=== PATIENT | male | born 1955 | race Caucasian/White ===

== ENCOUNTER 2018-03-07 10:17 | Emergency (ER) | payer SELFPAY ==
[2018-03-07 11:49] LABS: Absolute Lymphocytes (CBC) 1.4 K/uL (0.7-4.9); Absolute Monocytes 0.9 K/uL (0.1-1.3); Absolute Neutrophil 9.8 K/uL (1.8-8.0); Basophils % 0.6 % (0-1.3); Hematocrit 49.4 % (39.6-49.0); Lymphocytes % 11.5 % (15.3-44.8); MCH 30.8 pg (27.0-35.0); MCV 91.8 fL (80-100); MPV 8.7 fL (7.6-11.3); RBC Red Blood Cell Count 5.38 M/uL (4.33-5.43)
--- NOTE | 2018-03-07 11:54 | RAD REPORT ---
EXAM DESCRIPTION: US - UPPER EXTREMITY VENOUS UNILATE - 03/07/2018 11:26 am CLINICAL HISTORY: SWELLING Arm swelling and edema. COMPARISON: No comparisons FINDINGS: Right upper extremity venous system was interrogated with Doppler technique. Normal flow, compressibility and augmentation was noted. There is no DVT present. IMPRESSION: No evidence of right upper extremity deep venous thrombosis.
[2018-03-07 12:13] LABS: ALT/SGPT 23 U/L (12-78); AST/SGOT 15 U/L (15-37); Alkaline Phosphatase 68 U/L (45-117); BUN Blood Urea Nitrogen 10 mg/dL (7-18); Bicarbonate 31 mmol/L (21-32); Glucose Level 90 mg/dL (74-106); Potassium 3.8 mmol/L (3.5-5.1); Sodium Level 140 mmol/L (136-145)
[2018-03-07] MEDS ORDERED: BUPIVACAINE 0.5% PF 10 ML VIAL ONE (12:52)
[2018-03-07] MEDS ORDERED: SMZ./TMP. 800/160 MG TABLET ONE (13:59)
[2018-03-07] MEDS ORDERED: CLINDAMYCIN 600MG/D5W 600 MG/50 ML BAG IV ONE (13:59)
--- NOTE | 2018-03-07 14:37 | EDPHYS ---
Physician Documentation [facility] Name: Jerod Whitehead Age: 62 yrs Sex: Male : 1955 Arrival Date: 03/07/2018 Time: 10:21 Bed 15 Private MD: None, None ED Physician Carlo Núñez HPI: 03/07 10:51 This 62 yrs old Male presents to ER via Ambulatory with complaints of Insect jmm Bite. 10:51 The patient or guardian complains of pain, swelling. The complaints affect the dorsal jmm aspect of right forearm and palmar aspect of right forearm. Onset: The symptoms/episode began/occurred gradually, 4 day(s) ago. This is a 62 year old male that presents to the ED with right forearm swelling beginning 1 day ago. Patient states that 4 days ago he noticed what appeared to be an insect bite which he scrapped with a small amount of pus. Patient states he awoke today to increased swelling of the forearm. Chills, body aches. . Historical: - Allergies: 10:28 Aspirin; tw2 10:30 Motrin; tw2 - PSHx: 10:28 back surgery x 3; Tonsillectomy; tw2 - Immunization history:: Adult Immunizations up to date, Last tetanus immunization: < 10 years ago. - Social history:: Smoking status: Patient uses tobacco products, smokes one-half pack cigarettes per day. - Ebola Screening: : Patient denies travel to an Ebola-affected area in the 21 days before illness onset. ROS: 10:51 Eyes: Negative for injury, pain, redness, and discharge, Cardiovascular: Negative for jmm chest pain, palpitations, and edema, Respiratory: Negative for shortness of breath, cough, wheezing, and pleuritic chest pain, Abdomen/GI: Negative for abdominal pain, nausea, vomiting, diarrhea, and constipation. 10:51 Constitutional: Positive for fever. 10:51 Skin: Positive for erythema, swelling. 10:51 All other systems are negative. Exam: 10:51 Head/Face: atraumatic. Chest/axilla: Normal chest wall appearance and motion. jmm Cardiovascular: Regular rate and rhythm. No edema appreciated Respiratory: Normal respirations, no respiratory distress appreciated 10:51 Constitutional: The patient appears in no acute distress, alert, awake. 10:51 Musculoskeletal/extremity: swelling noted to the right forearm, compartments are soft, full radial pulse, NVI. 10:51 Skin: 10:51 Skin: swelling and erythema is noted secondary to a fluctuant lesion at the right forearm. The area is mildly tender to palpaiton. 10:51 Neuro: Orientation: is normal, Mentation: is normal, Memory: is normal, Gait: is steady. 10:51 Psych: Behavior/mood is pleasant, cooperative. Vital Signs: 10:29 BP 190 / 111; Pulse 80; Resp 17; Pulse Ox 97% on R/A; tw2 11:41 BP 171 / 103; Pulse 69; Resp 17; Pulse Ox 100% on R/A; tw2 12:51 BP 164 / 99; Pulse 74; Resp 16; Pulse Ox 98% on R/A; iw 13:50 BP 163 / 100; Pulse 66; Resp 16; Pulse Ox 100% on R/A; dh3 Procedures: 14:00 I \T\ D: Incision and drainage was performed for an abscess of the right dorsal aspect of [facility] right forearm Prepped with Betadine, Anesthetized with 0.5% marcaine. Incised with #11 blade. Drained moderate amount purulent fluid. Packed with iodoform gauze, Dressing: sterile 4x4 gauze, the patient tolerated the procedure well. MDM: 10:47 Patient medically screened. [facility] 14:00 Refusal of service: The patient/guardian displays adequate decision making capability [facility] and despite a detailed discussion of alternatives, benefits, risks, and consequences refuses: Admission to the hospital for further work-up and treatment. 14:28 Data reviewed: vital signs, nurses notes, radiologic studies, ultrasound. Counseling: I [facility] had a detailed discussion with the patient and/or guardian regarding: the historical points, exam findings, and any diagnostic results supporting the discharge/admit diagnosis. 03/07 10:50 Order name: CBC with Diff; Complete Time: 12:39 [facility] 03/07 10:50 Order name: CMP; Complete Time: 12:21 [facility] 03/07 10:50 Order name: Blood Culture Adult (2) [facility] 03/07 10:50 Order name: ESR; Complete Time: 12:39 [facility] 03/07 10:50 Order name: Procalcitonin; Complete Time: 13:08 [facility] 03/07 10:50 Order name: Saline Lock; Complete Time: 11:50 [facility] 03/07 11:01 Order name: UPPER EXTREMITY VENOUS UNILATE; Complete Time: 12:03 EDMS Administered Medications: 13:00 Drug: Marcaine (0.5 %) 10 ml Volume: 10 ml; Route: Infiltration; iw 14:00 Follow up: Response: No adverse reaction iw 14:25 Drug: Clindamycin 600 mg Route: IVPB; Infused Over: 30 mins; Site: left antecubital; iw 15:00 Follow up: IV Status: Completed infusion iw 14:30 Drug: Bactrim (160 mg-800 mg (DS) 1 tablet Route: PO; iw 15:00 Follow up: Response: No adverse reaction iw Disposition: 18:38 Co-signature as Attending Physician, Carlo Núñez MD. Disposition: 03/07/18 14:36 Discharged to Home. Impression: Cellulitis of the right forearm, Abscess. - Condition is Stable. - Discharge Instructions: Skin Abscess, Incision and Drainage, Care After. - Prescriptions for Clindamycin HCl 300 mg Oral Capsule - take 1 capsule by ORAL route every 6 hours for 10 days; 40 capsule. Ultram 50 mg Oral Tablet - take 1 tablet by ORAL route every 6 hours As needed; 20 tablet. Bactrim DS 800- 160 mg Oral Tablet - take 1 tablet by ORAL route every 12 hours for 10 days; 20 tablet. - Medication Reconciliation Form, Thank You Letter, Antibiotic Education, Prescription Opioid Use form. - Follow up: Private Physician; When: 2 - 3 days; Reason: Recheck today's complaints, Continuance of care, Re-evaluation by your physician. Signatures: [facility] Glenn Werner PA PA Abril Hernandez, RN RN iw Emmie Trevino RN RN tw2 Carlo Núñez MD MD Corrections: (The following items were deleted from the chart) 11:01 10:51 Extremity Venous Uni [email or web address] ordered. [facility] 15:15 14:36 03/07/2018 14:36 Discharged to Home. Impression: Cellulitis of the right forearm; iw Abscess. Condition is Stable. Forms are Medication Reconciliation Form, Thank You Letter, Antibiotic Education, Prescription Opioid Use. Follow up: Private Physician; When: 2 - 3 days; Reason: Recheck today's complaints, Continuance of care, Re-evaluation by your physician. junito
--- NOTE | 2018-03-07 14:37 | ER ---
Nurse's Notes [facility] Name: Jerod Whitehead Age: 62 yrs Sex: Male : 1955 Arrival Date: 03/07/2018 Time: 10:21 Bed 15 Private MD: None, None Diagnosis: Cellulitis of the right forearm;Abscess Presentation: 03/07 10:26 Risk Assessment: Do you want to hurt yourself or someone else? Patient reports no tw2 desire to harm self or others. Initial Sepsis Screen: Does the patient meet any 2 criteria? No. Patient's initial sepsis screen is negative. Does the patient have a suspected source of infection? Yes: Skin breakdown/wound. Care prior to arrival: None. 10:26 Acuity: DAVID 3 tw2 10:28 Presenting complaint: Patient states: bit by unknown insect 4 days ago, worsening pain tw2 RIGHT forearm. Transition of care: patient was not received from another setting of care. Onset of symptoms was March 07, 2018. 10:28 Method Of Arrival: Ambulatory tw2 Triage Assessment: 10:35 Bite description: bite sustained to right arm by an unknown animal, animal information: tw2 vaccination(s) is not applicable. General: Behavior is calm, cooperative, appropriate for age. Historical: - Allergies: 10:28 Aspirin; tw2 10:30 Motrin; tw2 - PSHx: 10:28 back surgery x 3; Tonsillectomy; tw2 - Immunization history:: Adult Immunizations up to date, Last tetanus immunization: < 10 years ago. - Social history:: Smoking status: Patient uses tobacco products, smokes one-half pack cigarettes per day. - Ebola Screening: : Patient denies travel to an Ebola-affected area in the 21 days before illness onset. Screenin:24 Abuse screen: Denies threats or abuse. Nutritional screening: No deficits noted. tw2 Tuberculosis screening: No symptoms or risk factors identified. Fall Risk None identified. Assessment: 10:32 General: Appears in no apparent distress. Pain: Complains of pain in right arm. Neuro: tw2 Level of Consciousness is awake, alert, obeys commands, Oriented to person, place, time, situation. Cardiovascular: Denies chest pain, shortness of breath, Heart tones S1 S2 Capillary refill Patient's skin is warm and dry. Respiratory: Airway is patent Respiratory effort is even, unlabored, Respiratory pattern is regular, symmetrical, Breath sounds are clear bilaterally. GI: No signs and/or symptoms were reported involving the gastrointestinal system. GI: Pt is actively vomiting bile, Bowel sounds present X 4 quads. : No signs and/or symptoms were reported regarding the genitourinary system. EENT: No signs and/or symptoms were reported regarding the EENT system. Derm: Skin is intact, Skin is pink, Skin temperature is warm Wound noted right arm, right forearm Reports increased pain and swelling. Musculoskeletal: Circulation, motion, and sensation intact. Range of motion: intact in all extremities. 10:42 Reassessment: provider at bedside at this time. tw2 11:41 Reassessment: Patient appears in no apparent distress at this time. No changes from tw2 previously documented assessment. Patient and/or family updated on plan of care and expected duration. Pain level reassessed. Patient is alert, oriented x 3, equal unlabored respirations, skin warm/dry/pink. 13:10 Reassessment: Patient appears in no apparent distress at this time. Patient and/or iw family updated on plan of care and expected duration. Pain level reassessed. Patient is alert, oriented x 3, equal unlabored respirations, skin warm/dry/pink. Vital Signs: 10:29 BP 190 / 111; Pulse 80; Resp 17; Pulse Ox 97% on R/A; tw2 11:41 BP 171 / 103; Pulse 69; Resp 17; Pulse Ox 100% on R/A; tw2 12:51 BP 164 / 99; Pulse 74; Resp 16; Pulse Ox 98% on R/A; iw 13:50 BP 163 / 100; Pulse 66; Resp 16; Pulse Ox 100% on R/A; dh3 ED Course: 10:21 Patient arrived in ED. sb2 10:21 None, None is Private Physician. sb2 10:22 Glenn Werner PA is PHCP. [facility] 10:22 Carlo Núñez MD is Attending Physician. jm 10:24 Emmie Trevino, TATA is Primary Nurse. tw2 10:25 Arm band placed on. tw2 10:25 Bed in low position. Call light in reach. Pulse ox on. NIBP on. tw2 10:27 Triage completed. tw2 10:57 Patient taken to ultrasound. hr 11:02 UPPER EXTREMITY VENOUS UNILATE In Process Unspecified. EDMS 11:35 Inserted saline lock: 20 gauge in left antecubital area, using aseptic technique. Blood tw2 collected. 11:51 Report given to TATA Samuels. tw2 14:40 Assist provider with I \T\ D: of an abscess on right forearm Set up I\T\D tray. Performed iw by Glenn POPE Wound packed. iodoform gauze, Dressing with 4X4s, tape Patient tolerated well. 15:14 IV discontinued, intact, bleeding controlled, No redness/swelling at site. Pressure iw dressing applied. Administered Medications: 13:00 Drug: Marcaine (0.5 %) 10 ml Volume: 10 ml; Route: Infiltration; iw 14:00 Follow up: Response: No adverse reaction iw 14:25 Drug: Clindamycin 600 mg Route: IVPB; Infused Over: 30 mins; Site: left antecubital; iw 15:00 Follow up: IV Status: Completed infusion iw 14:30 Drug: Bactrim (160 mg-800 mg (DS) 1 tablet Route: PO; iw 15:00 Follow up: Response: No adverse reaction iw Outcome: 14:36 Discharge ordered by MD. wild 15:14 Discharged to home ambulatory. iw 15:14 Condition: good 15:14 Discharge instructions given to patient, Instructed on discharge instructions, follow up and referral plans. medication usage, wound care, pt advised to remove packing in 3 days, per TOSHIA Elizabeth, keep wound clean and dry, take prescriptions as prescribed, advised pt to have pharmacy call ER if prescription was too expensive, advised pt to monitor arm for worsening infection and fever, advised to return to ER if pt has difficulty with wound care as pt has no PCP to follow up with, pt verbalizes understanding Demonstrated understanding of instructions, follow-up care, medications, wound care, Prescriptions given X 3. 15:15 Patient left the ED. iw Signatures: Dispatcher [employer] EDDC Glenn Werner PA PA jmm Rod, Haley hr Williams, Irene, RN RN iw Emmie Trevino RN RN tw2 Judy Velasquez 3 Halima Butterfield 2
== END 2018-03-07 15:15 | disposition home or self-care (01) ==
LOC: ER 10:17
PROC: 0J9G0ZZ Drainage of Right Lower Arm Subcutaneous Tissue and Fascia, Open Approach (ICD-10-PCS; principal; 2018-03-07)
DX: L03.113 Cellulitis of right upper limb (principal); F17.210 Nicotine dependence, cigarettes, uncomplicated; Z88.6 Allergy status to analgesic agent
CPT/HCPCS: 36415; 80053; 84145; 85025; 85652; 87040; 93971; 96365; 99285

== ENCOUNTER 2024-03-19 07:00 | Emergency (ER) | payer OTHER ==
--- OUTSIDE RECORDS SUMMARY | 2024-03-19 07:04 | XMS REPORT | Continuity of Care Document ---
Author Name Unknown Address [address] [place] [address] [facility] thconnect Address [address] [place] [address] Care Team Providers Care [facility] Family [facility] Professor Name Role Phone Jennifer Leonard Attending Clinician Unavailable Mari Bravo Attending Clinician Unavailable Jinny-Mbayo_A_AH Attending Clinician Unavailable Jinny-Mbayo_A_AH Admitting Clinician Unavailable Payers Payer Name Policy Type Policy Number Effective Date Expirati on Date Source [facility] HEALTH PLANS [id number] [facility] HEALTH PLANS [id number] [facility] HEALTH PLANS [id number] [facility] HEALTH PLANS [id number] [facility] HEALTH PLANS [id number] [facility] HEALTH PLANS [id number] [facility] HEALTH PLANS [id number] [facility] (MEDICARE REPLACEMENT/ADV ANTAGE - HMO) [id number] 2019 00:00:00 Problems Condition Name Condition Details Condition Category Status Onset Date Resolution Date Last Treatment Date Treating Clinician Comments Source [id number] Left sided sciatica Problem Active [facility] [id number] Dependence on renal dialysis Problem Active [facility] [id number] Presence of right artificial knee joint Problem Active [facility] [id number] Primary generalize d (osteo)art hritis Problem Active [facility] [id number] Hypertensi ve chronic kidney disease with stage 1 through stage 4 chronic kidney disease, or unspecifie d chronic kidney disease Problem Active [facility] [id number] Tobacco use Problem Active [facility] [id number] Primary osteoarthr itis of right knee Problem Active [facility] [id number] 06018 Type 2 diabetes mellitus with diabetic neuropathy , unspecifie d whether radiological technician insulin use Problem Active [facility] [id number] 75577 Primary osteoarthr itis of left knee Problem Active [facility] 150442192 Personal history of malignant neoplasm of prostate Problem Active [facility] 50774757 Other chronic pain Problem Active [facility] 76997987 Anxiety Problem Active [facility] [id number] Tobacco abuse counseling Problem Active [facility] 31931652 Pain in right knee Problem Active [facility] 593575886 Erectile dysfunctio n, unspecifie d erectile dysfunctio n type Problem Active [facility] [id number] 65199 Pain in left knee Problem Active [facility] 997244503 Gastroesop hageal reflux disease, esophagiti s presence not specified Problem Active [facility] 56914630 Chronic obstructiv e pulmonary disease, unspecifie d COPD type Problem Active [facility] 32997620 Type 2 diabetes mellitus with diabetic chronic kidney disease Problem Active [facility] 115734698 Other obesity Problem Active [facility] 43702404 End stage renal disease Problem Active [facility] Benign prostatic hyperplasi a BPH (benign prostatic hyperplasi a) Problem Active [facility] Allergies, Adverse Reactions, Alerts Allergy Name Allergy Type Status Severity Reaction(s) Onset Date Inactive Date Treating Clinician Comments Source ibuprofe n ibuprofe n Active Unknown [facility] aspirin aspirin Active Unknown [facility] Social History Social Habit Start Date Stop Date Quantity Comments Source History of Tobacco Use Current Smoker [facility] Sex Assigned At [facility] Smoking Status Start Date Stop Date Source Current Smoker 2020-09-16 00:00:00 [facility] Medications Ordered Medication Name Filled Medication Name Start Date Stop Date Current Medication? Ordering Clinician Indication Dosage Frequency Signature (SIG) Comments Components Source Tizanidine HCl 2 MG Tizanidine HCl 2 MG 09-16 00:00: 00 10-16 00:00 :00 No 1{capsu le_as_n eeded} Tizanidine HCl 2 MG Nicotine Step 1 21 MG/24HR Nicotine Step 1 21 MG/24HR 2019-07 00:00: 00 07-15 00:00 :00 No 1{patch _to_ski n} QD Nicotine Step 1 21 MG/24HR Neomycin-Po lymyxin-HC Neomycin-Po lymyxin-HC 03-23 00:00: 00 Yes Mari Millender 4 drops into left ear [facility] Neomycin-Po lymyxin-HC 1 % Neomycin-Po lymyxin-HC 1 % 03-23 00:00: 00 No Neomycin-P olymyxin-H C 1 % Neomycin-Po lymyxin-HC 1 % Neomycin-Po lymyxin-HC 1 % 03-23 00:00: 00 No Neomycin-P olymyxin-H C 1 % Augmentin Augmentin 03-23 00:00: 00 04-02 00:00 :00 No Mari Millender 1 tablet [facility] Albuterol Sulfate Albuterol Sulfate 02-08 00:00: 00 Yes Mari Millender 3 ml as needed [facility] Albuterol Sulfate (2.5 MG/3ML) 0.083% Albuterol Sulfate (2.5 MG/3ML) 0.083% 02-08 00:00: 00 No 3{ml_as _needed } Albuterol Sulfate (2.5 MG/3ML) 0.083% Albuterol Sulfate (2.5 MG/3ML) 0.083% Albuterol Sulfate (2.5 MG/3ML) 0.083% 2019-0 7-20 00:00: 00 No 3{ml_as _needed } Albuterol Sulfate (2.5 MG/3ML) 0.083% Albuterol Sulfate HFA Albuterol Sulfate HFA 2019-16 00:00: 00 Yes Mari Bravo 2 puffs as needed for sob/wheezi ng [facility] Tamsulosin HCl Tamsulosin HCl 16 00:00: 00 08-02 00:00 :00 No Mari Bravo not defined [facility] Tramadol HCl Tramadol HCl 12-18 00:00: 00 Yes Mari Genaoender 1 tablet as needed [facility] Tramadol HCl 50 MG Tramadol HCl 50 MG 12-18 00:00: 00 No 1{table t_as_ne eded} QID Tramadol HCl 50 MG Tramadol HCl 50 MG Tramadol HCl 50 MG 12-18 00:00: 00 No 1{table t_as_ne eded} QID Tramadol HCl 50 MG Anoro Ellipta 62.5-25 MCG/INH Anoro Ellipta 62.5-25 MCG/INH No 1{puff} QD Anoro Ellipta 62.5-25 MCG/INH Atenolol 50 MG Atenolol 50 MG No 1{table t} QD Atenolol 50 MG Esomeprazol e Magnesium 20 MG Esomeprazol e Magnesium 20 MG No 1{capsu le} QD Esomeprazo le Magnesium 20 MG Tylenol 8 Hour Arthritis Pain 650 MG Tylenol 8 Hour Arthritis Pain 650 MG No 2{table ts_as_n eeded} TID Tylenol 8 Hour Arthritis Pain 650 MG Albuterol Sulfate HFA 108 (90 Base) MCG/ACT Albuterol Sulfate HFA 108 (90 Base) MCG/ACT No Albuterol Sulfate HFA 108 (90 Base) MCG/ACT Metoprolol Tartrate Metoprolol Tartrate No Metoprolol Tartrate Tadalafil 10 MG Tadalafil 10 MG No 1{table t_as_ne eded} QD Tadalafil 10 MG Tamsulosin HCl 0.4 MG Tamsulosin HCl 0.4 MG No 1{capsu le} BID Tamsulosin HCl 0.4 MG Tadalafil 10 MG Tadalafil 10 MG No 1{table t_as_ne eded} QD Tadalafil 10 MG Esomeprazol e Magnesium 20 MG Esomeprazol e Magnesium 20 MG No 1{capsu le} QD Esomeprazo le Magnesium 20 MG BuPROPion HCl ER (SR) 150 MG BuPROPion HCl ER (SR) 150 MG No 1{table t_in_th e_morni ng} BID BuPROPion HCl ER (SR) 150 MG Capsaicin 0.025 % Capsaicin 0.025 % No 1{appli cation_ as_need ed} TID Capsaicin 0.025 % Albuterol Sulfate HFA 108 (90 Base) MCG/ACT Albuterol Sulfate HFA 108 (90 Base) MCG/ACT No Albuterol Sulfate HFA 108 (90 Base) MCG/ACT Anoro Ellipta 62.5-25 MCG/INH Anoro Ellipta 62.5-25 MCG/INH No 1{puff} QD Anoro Ellipta 62.5-25 MCG/INH Tamsulosin HCl Tamsulosin HCl No Tamsulosin HCl Enalapril Maleate 10 MG Enalapril Maleate 10 MG No 1{table t} Enalapril Maleate 10 MG Baclofen 10 MG Baclofen 10 MG No 1{table t_with_ food_or _milk} TID Baclofen 10 MG Atenolol 50 MG Atenolol 50 MG No 1{table t} QD Atenolol 50 MG Tamsulosin HCl 0.4 MG Tamsulosin HCl 0.4 MG No 1{capsu le} BID Tamsulosin HCl 0.4 MG Duloxetine HCl 60 MG Duloxetine HCl 60 MG No 1{capsu le} QD Duloxetine HCl 60 MG Tylenol 8 Hour Arthritis Pain 650 MG Tylenol 8 Hour Arthritis Pain 650 MG No 2{table ts_as_n eeded} TID Tylenol 8 Hour Arthritis Pain 650 MG Tadalafil Tadalafil Yes Mari Millender 1 tablet as needed [facility] Duloxetine HCl Duloxetine HCl Yes Mari Millender 1 capsule [facility] Metoprolol Tartrate Metoprolol Tartrate Yes Mari Millender not defined [facility] Esomeprazol e Magnesium Esomeprazol e Magnesium Yes Mari Millender 1 capsule [facility] Atenolol Atenolol Yes Mari Millender 1 tablet [facility] BuPROPion HCl ER (SR) BuPROPion HCl ER (SR) Yes Mari Millender 1 tablet in the morning [facility] Baclofen Baclofen Yes Mari Millender 1 tablet with food or milk [facility] Enalapril Maleate Enalapril Maleate Yes Mari Millender 1 tablet [facility] Capsaicin 0.025 % Capsaicin 0.025 % No 1{appli cation_ as_need ed} TID Capsaicin 0.025 % Baclofen 10 MG Baclofen 10 MG No 1{table t_with_ food_or _milk} TID Baclofen 10 MG Duloxetine HCl 60 MG Duloxetine HCl 60 MG No 1{capsu le} QD Duloxetine HCl 60 MG Enalapril Maleate 10 MG Enalapril Maleate 10 MG No 1{table t} Enalapril Maleate 10 MG BuPROPion HCl ER (SR) 150 MG BuPROPion HCl ER (SR) 150 MG No 1{table t_in_th e_morni ng} BID BuPROPion HCl ER (SR) 150 MG Vital Signs Vital Name Observation Time Observation Value Comments S ource height 2020-09-16 15:20:00 70 [in_i] Commo n [facility] weight 2020-09-16 15:20:00 154.8 [lb_av] Co mmon [facility] temperature 2020-09-16 15:20:00 98.0 [degF] Com mon [facility] bmi 2020-09-16 15:20:00 22.21 kg/m2 Comm on [facility] oximetry 2020-09-16 15:20:00 97 % Commo n [facility] respiratory rate 2020-09-16 15:20:00 18 /min Common [facility] blood pressure systolic 2020-09-16 15:20:00 198 mm[Hg] [facility] pressure diastolic 2020-09-16 15:20:00 98 mm[Hg] [facility] height 2020-06-15 14:40:00 70 [in_i] Commo n [facility] weight 2020-06-15 14:40:00 161 [lb_av] Comm on [facility] temperature 2020-06-15 14:40:00 99.0 [degF] Com mon [facility] bmi 2020-06-15 14:40:00 23.1 kg/m2 Commo n [facility] oximetry 2020-06-15 14:40:00 93 % Commo n [facility] respiratory rate 2020-06-15 14:40:00 18 /min [facility] blood pressure systolic 2020-06-15 14:40:00 192 mm[Hg] Common [facility] blood pressure diastolic 2020-06-15 14:40:00 100 mm[Hg] [facility] Encounters Start Date/Time End Date/Time Encounter Type Admission Type Attending [facility] Facility Care Department Encounter ID Source 2021-08-17 12:46:24 Outpatient Leonard, Na STLC STLC [id number] [facility] 2021-08-17 12:33:42 Outpatient Leonard, Na STLMLC STLC [id number] [facility] 2021-08-17 12:32:18 Outpatient Leonard, Na STLMLC STLMLC [id number] [facility] 2021-08-17 12:17:09 Outpatient Leonard, Na STLMLC STLC [id number] [facility] 2021-08-17 12:07:22 Outpatient Mari Bravo STLC STLC [id number] [facility] 2021-08-17 11:48:36 Outpatient Mari Bravo STGEORGELC STLMLC [id number] [facility] 2021-08-17 11:31:30 Outpatient Mari Bravo STLMLC STLMLC [id number] [facility] 2021-08-17 11:25:49 Outpatient Mari Bravo STLMLC STLMLC [id number] [facility] 2021-08-17 11:22:09 Outpatient Mari Bravo STLMLC STLMLC [id number] [facility] 2021-08-17 11:19:18 Outpatient Mari Bravo STLMLC STLMLC [id number] [facility] 2021-08-17 11:18:52 Outpatient Mari Bravo STLMLC STLMLC [id number] [facility] 2021-08-17 11:16:40 Outpatient Mari Bravo STLMLC STLMLC [id number] [facility] 2020-09-16 00:00:00 2020-09-16 00:00:00 OFFICE VISIT ESTAB PT LEVEL 4 STLMLC STLMLC [id number] [facility] 2020-08-30 00:00:00 2020-08-30 00:00:00 (TEL) STLMLC STLMLC [id number] [facility] 2020-07-29 00:00:00 2020-07-29 00:00:00 (TEL) STLMLC STLMLC [id number] [facility] 2020-07-22 00:00:00 2020-07-22 00:00:00 (TEL) STLMLC STLMLC [id number] [facility] 2020-07-22 00:00:00 2020-07-22 00:00:00 (TEL) STLMLC STLMLC [id number] [facility] 2020-06-25 00:00:00 2020-06-25 00:00:00 [facility] [id number] [facility] 2020-06-15 00:00:00 2020-06-15 00:00:00 OFFICE VISIT EST PT LEVEL 3 [facility] [id number] [facility] 2020-03-23 15:20:00 2020-03-23 15:20:00 [facility] [id number] [facility] 2020-02-05 11:00:00 2020-02-05 11:00:00 [facility] [id number] [facility] 2019-12-31 10:22:00 2019-12-31 10:22:00 [facility] [id number] [facility] 2019-12-08 08:32:00 2019-12-08 08:32:00 [facility] [id number] [facility] 2019-11-24 12:04:00 2019-11-24 12:04:00 [facility] [id number] [facility] 2019-11-18 11:15:00 2019-11-18 11:15:00 [facility] [id number] [facility] 2019-11-06 14:00:00 2019-11-06 14:00:00 [facility] [place] [facility] [id number] [facility] 2019-10-07 04:34:00 2019-10-07 04:34:00 Outpatient Jinny-Mbayo _A_AH VFP VFP [id number] [facility] 2019-10-07 04:34:00 2019-10-07 04:34:00 Outpatient Jinny-Mbayo _A_AH VFP VFP [id number] [facility] 2019-10-07 04:34:00 2019-10-07 04:34:00 Outpatient Jinny-Mbayo _A_AH VFP VFP [id number] [facility] 2019-10-07 04:34:00 2019-10-07 04:34:00 Outpatient Jinny-Mbayo _A_AH VFP VFP [id number] [facility] 2019-02-04 09:13:00 2019-02-04 09:13:00 [facility] [id number] [facility] 2019-01-30 09:00:00 2019-01-30 09:00:00 [facility] [id number] [facility]
[2024-03-19] MEDS ORDERED: METHYLPREDNISOLONE 125 MG INJ ONE (07:24)
[2024-03-19] MEDS ORDERED: ALBUTEROL 2.5 MG/3 ML NEB SOL ONE (07:24)
[2024-03-19 08:00] LABS: Absolute Basophils 0.1 K/uL (0-0.5); Absolute Lymphocytes (CBC) 1.5 K/uL (0.7-4.9); Absolute Monocytes 0.8 K/uL (0.1-1.3); Absolute Neutrophil 12.7 K/uL (1.8-8.0); Basophils % 0.6 % (0-1.3); Eosinophils % 0.2 % (0-4.4); Hematocrit 41.5 % (39.6-49.0); Hemoglobin 13.7 g/dL (13.6-17.9); Lymphocytes % 9.9 % (15.3-44.8); MCH 31.2 pg (27.0-35.0); MCV 94.6 fL (80-100); MPV 9.2 fL (7.6-11.3); Monocytes % 5.6 % (3.3-12.3); Neutrophils % 83.7 % (41.7-73.7); Platelets 311 thou/uL (152-406); RBC Red Blood Cell Count 4.39 M/uL (4.33-5.43)
[2024-03-19 08:08] LABS: Anion Gap 9.6 mEq/L (5.0-15.0); Potassium 3.6 mEq/L (3.5-5.1); Troponin High Sensitivity 20.1 pg/mL (<58.9)
--- NOTE | 2024-03-19 08:11 | RAD REPORT ---
EXAM DESCRIPTION: Primo Single View03/19/2024 7:56 am CLINICAL HISTORY: Chest pain COMPARISON: 2013 FINDINGS: Lucency lower lateral right lung base The lungs appear clear of acute infiltrate. The heart is normal size IMPRESSION: Lucency lower lateral right lung base may simply represent a combination of skin fold an d diminished vascularity. Pneumothorax has a similar appearance. Unenhanced CT chest recommended Dr. Dsouza of the ER notified at 8:05 a.m. March 19, 2024
--- NOTE | 2024-03-19 09:20 | RAD REPORT ---
EXAM DESCRIPTION: CT - Chest For Pe Angio - 03/19/2024 8:23 am CLINICAL HISTORY: Chest pain COMPARISON: X-ray March 19, 2024 TECHNIQUE: Dynamically enhanced axial 3 mm thick images of the chest were obtained during administra tion of 100 mL Isovue 370 IV contrast. Coronal and oblique reconstruction images were generated and r eviewed. Exam utilizes a protocol for optimal evaluation of pulmonary arterial tree. Maximum intensity projections 3D imaging was utilized All CT scans are performed using dose optimization technique as appropriate and may include automated exposure control or mA/KV adjustment according to patient size. FINDINGS: A pulmonary embolus is not seen. 5.2 centimeters aneurysm aortic root A pleural effusion is not seen. A pericardial effusion is not seen. A lung consolidation is not present. Moderate COPD. No pneumothorax Small hiatal hernia A 3.7 centimeter right adrenal mass Hounsfield unit -11. Smaller left adrenal mass Hounsfield unit 7. Both are compatible with adenomas. No followup imaging recommended IMPRESSION: Negative for a pulmonary embolism. 5.2 centimeter aneurysm aortic root
[2024-03-19] MEDS ORDERED: LABETALOL 20 MG/4ML SYRINGE IV ONE ×2 (10:21→10:56)
--- NOTE | 2024-03-19 10:37 | RAD REPORT ---
EXAM DESCRIPTION: CT - Head C Spine Mpr Wo Con - 03/19/2024 10:07 am CLINICAL HISTORY: Head and neck injury status post fall. Head and neck pain COMPARISON: [address] TECHNIQUE: Computed axial tomography of the head and cervical spine was obtained. Sagittal and coronal reconstruction was performed. All CT scans are performed using dose optimization technique as appropriate and may include automated exposure control or mA/KV adjustment according to patient size. FINDINGS: An intracranial bleed is not seen. The ventricles are normal in caliber. No significant hypodensity within the brain. An extra-axial fluid collection is not noted. 2.8 cm calcified mass abutting the left frontal bone and olfactory groove minimally enlarged from todd or exam. No surrounding edema. This is compatible with meningioma. Fluid within the visualized sinuses and mastoids is not seen A cervical fracture is not visualized. No dislocation is noted. Mild anterior subluxation C2 on C3. Mild posterior subluxation C4 on C5. 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 IMPRESSION: No acute intracranial abnormality is seen. A cervical fracture is not visualized. If the patient continues to have symptoms to suggest intracranial /spinal cord pathology then MRI wou ld be recommended
--- NOTE | 2024-03-19 10:50 | ER ---
Nurse's Notes [facility] Name: Jerod Whitehead Age: 68 yrs Sex: Male : 1955 Arrival Date: 03/19/2024 Time: 07:00 Bed 13 Private MD: Diagnosis: Shortness of breath;Chest pain, unspecified;Essential (primary) hypertension Presentation: 03/19 07:10 Chief complaint: EMS states: "toned out for difficulty breathing that got worse this mb9 morning. Gave A\\T\\A treatment MANAGER CONVENTION. PT has history of COPD.". Coronavirus screen: Vaccine status: Patient reports receiving the 2nd dose of the covid vaccine. Ebola Screen: No symptoms or risks identified at this time. Initial Sepsis Screen: Does the patient meet any 2 criteria? No. Patient's initial sepsis screen is negative. Does the patient have a suspected source of infection? No. Patient's initial sepsis screen is negative. Risk Assessment: Do you want to hurt yourself or someone else? Patient reports no desire to harm self or others. Onset of symptoms was March 19, 2024. 07:10 Method Of Arrival: EMS: [facility] mb9 07:10 Acuity: DAVID 2 mb9 07:13 Care prior to arrival: Medication(s) given: Albuterol Neb x 2, IV initiated. 20 GA, in mb9 the left antecubital area. Triage Assessment: 07:14 General: Appears uncomfortable, Behavior is anxious. Pain: Denies pain. EENT: No signs mb9 and/or symptoms were reported regarding the EENT system. Neuro: Ruffin Agitation-Sedation Scale (RASS): 0 - Alert and Calm Level of Consciousness is awake, alert, obeys commands, Oriented to person, place, time, situation, Appropriate for age. Cardiovascular: Heart tones S1 S2 present Patient's skin is warm and dry. Rhythm is regular. Respiratory: Reports shortness of breath Airway is patent Respiratory effort is even, unlabored, Respiratory pattern is regular, symmetrical, Breath sounds with wheezes bilaterally. GI: Abdomen is flat, non-distended, Bowel sounds present X 4 quads. Abd is soft and non tender X 4 quads. : No signs and/or symptoms were reported regarding the genitourinary system. Derm: Skin is pink, warm \\T\\ dry. Musculoskeletal: Range of motion: intact in all extremities. Historical: - Allergies: 07:11 Aspirin; mb9 07:11 Motrin; mb9 - Home Meds: 07:11 Atenolol Oral [Active]; mb9 - PMHx: 07:11 Hypertensive disorder; Chronic obstructive lung disease; mb9 - PSHx: 07:11 right leg; mb9 - Immunization history:: Adult Immunizations up to date. - Infectious Disease History:: Denies. - Social history:: Smoking status: Patient reports the use of cigarette tobacco products, smokes one pack cigarettes per day. Screenin:15 [facility] ED Fall Risk Assessment (Adult) History of falling in the last 3 months, mb9 including since admission No falls in past 3 months (0 pts) Confusion or Disorientation No (0 pts) Intoxicated or Sedated No (0 pts) Impaired Gait No (0 pts) Mobility Assist Device Used No (0 pt) Altered Elimination No (0 pt) Score/Fall Risk Level 0 - 2 = Low Risk Oriented to surroundings, Maintained a safe environment, Educated pt \\T\\ family on fall prevention, incl call for assistance when getting out of bed. Abuse screen: Denies threats or abuse. Nutritional screening: No deficits noted. Tuberculosis screening: No symptoms or risk factors identified. Assessment: 07:14 Reassessment: see triage assessment. mb9 08:03 Reassessment: Pt yelling and taking off monitor cords. Pt states he feels lightheaded mb9 and something is not right. Verbal reassurance given and pt placed back on monitor. ERP notified. 08:47 Reassessment: No changes from previously documented assessment. Patient and/or family mb9 updated on plan of care and expected duration. Pain level reassessed. Patient is alert, oriented x 3, equal unlabored respirations, skin warm/dry/pink. 09:56 Reassessment: ERP at bedside. Pt reporting chest pain and states he fell a few days mb9 ago. Pt unsure if he hit head. 10:27 Reassessment: No changes from previously documented assessment. Patient and/or family mb9 updated on plan of care and expected duration. Pain level reassessed. Patient is alert, oriented x 3, equal unlabored respirations, skin warm/dry/pink. 11:44 Reassessment: No changes from previously documented assessment. Patient and/or family mb9 updated on plan of care and expected duration. Pain level reassessed. Patient is alert, oriented x 3, equal unlabored respirations, skin warm/dry/pink. Vital Signs: 07:10 BP 141 / 125; Pulse 78; Resp 18; Temp 98; Pulse Ox 100% on R/A; Weight 58.97 kg; Height mb9 5 ft. 7 in. ; Pain 0/10; 07:51 BP 152 / 96; Pulse 84; Resp 18; Pulse Ox 95% on R/A; mb9 08:04 BP 174 / 107; Pulse 77; Resp 18; Pulse Ox 97% on R/A; mb9 08:47 BP 178 / 98; Pulse 80; Resp 18; Pulse Ox 99% on R/A; mb9 10:15 BP 196 / 87; Pulse 79; Resp 18; Pulse Ox 98% on R/A; mb9 10:55 BP 194 / 92; Pulse 70; Resp 18; Pulse Ox 100% on R/A; mb9 11:11 BP 181 / 99; Pulse 67; Resp 18; Pulse Ox 98% on R/A; mb9 11:45 BP 184 / 88; Pulse 62; Resp 18; Pulse Ox 97% on R/A; mb9 07:10 Body Mass Index 20.36 (58.97 kg, 170.18 cm) mb9 07:10 Pain Scale: Adult mb9 ED Course: 07:10 Patient arrived in ED. mb9 07:10 Vipin Dsouza DO is Attending Physician. ms3 07:11 Triage completed. mb9 07:12 Arm band placed on. mb9 07:13 Tg Rivera, TATA is Primary Nurse. mb9 07:15 Placed in gown. Bed in low position. Call light in reach. Side rails up X 1. Provided mb9 Education on: press call light if needing anything. Client placed on continuous cardiac and pulse oximetry monitoring. NIBP monitoring applied. quality assurance monitor body on. 07:15 Initial lab(s) drawn, by me, sent to lab. Inserted saline lock: 20 gauge in right mb9 forearm, using aseptic technique. Blood collected. Flushed with 10 mL NS. 07:15 Maintain EMS IV. Dressing intact. Good blood return noted. Site clean \\T\\ dry. Gauge \\T\\ mb 9 site: 20g left AC. Flushed with 10 mL NS. 07:16 No provider procedures requiring assistance completed. mb9 07:20 EKG done, by ED staff, reviewed by Vipin Dsouza DO. mb9 07:30 Patient requests food. Patient requests liquids. mb9 07:30 Basic Metabolic Panel Sent. mb9 07:30 CBC with Diff Sent. mb9 07:30 Troponin HS Sent. mb9 07:57 XRAY Chest (1 view) In Process Unspecified. EDMS 08:05 Door closed. Noise minimized. Warm blanket given. Pillow given. Verbal reassurance mb9 given. 08:24 CT Chest For PE Angio In Process Unspecified. EDMS 10:[address] via wheelchair. mb9 10:05 CT Head C Spine In Process Unspecified. EDMS 11:04 initiated transfer to [facility]. bd 11:28 pt accepted in transfer to [facility] to [address] Huy Guerrero, admin bd approval given by Nichelle Bailey. 11:48 Patient transferred, IV remains in place. mb9 Administered Medications: 07:29 Drug: Albuterol Inhalation 2.5 mg Inhalation every 20 minutes x3 Route: Inhalation; mb9 07:29 Drug: MethylPrednisoLONE IVP 125 mg IVP once Route: IVP; Site: right forearm; mb9 08:48 Follow up: Response: No adverse reaction mb9 07:49 Drug: Albuterol Inhalation 2.5 mg Inhalation every 20 minutes x3 Route: Inhalation; mb9 08:09 Drug: Albuterol Inhalation 2.5 mg Inhalation every 20 minutes x3 Route: Inhalation; mb9 10:41 Follow up: Response: No adverse reaction mb9 10:26 Drug: Labetalol IV 10 mg IV at calculated rate once Route: IV; Rate: calculated rate; mb9 Site: right forearm; 10:42 Follow up: Response: No adverse reaction; IV Status: Completed infusion mb9 10:58 Drug: Labetalol IV 10 mg IV at calculated rate once Route: IV; Rate: calculated rate; mb9 Site: right forearm; 11:12 Follow up: Response: No adverse reaction; IV Status: Completed infusion mb9 Medication: 07:15 VIS not applicable for this client. mb9 Outcome: 10:49 ER care complete, transfer ordered by . ms3 11:59 Transferred by ground EMS to [facility], Transfer form completed. mb9 X-rays sent w/ patient. 11:59 Transferred Note: report given to transferring nurse Barney 11:59 Condition: stable 11:59 Instructed on the need for transfer, 12:41 Patient left the ED. me1 Signatures: Dispatcher [employer] EDZully Calle Marcus, DO DO ms3 Tg Rivera RN RN mb9 Annmarie Thompson RN RN me1 Corrections: (The following items were deleted from the chart) 07:12 07:11 PSHx: None; mb9 mb9 07:14 07:10 Pulse 78bpm; Resp 18bpm; Pulse Ox 100% RA; Temp 98F; 58.97 kg; Height 5 ft. 7 mb9 in.; BMI: 20.3; Pain 0/10, Adult; mb9 08:11 08:04 Pulse 77bpm; Resp 18bpm; Pulse Ox 97% RA; mb9 mb9
--- NOTE | 2024-03-19 10:50 | EDPHYS ---
Physician Documentation [facility] Name: Jerod Whitehead Age: 68 yrs Sex: Male : 1955 Arrival Date: 03/19/2024 Time: 07:00 Bed 13 Private MD: ED Physician Vipin Dsouza HPI: 03/19 07:26 This 68 yrs old Male presents to ER via EMS with complaints of hungry and shortness of ms3 breath x 5 years. 07:26 68-year-old male with past medical history of hypertension, COPD [place] [facility] [place] [facility] for shortness of breath that is been ongoing for 5 years and feeling dehydrated as he does not have food at his house. Patient states he did drink 3 beers last night. Patient denies any alleviating or inciting factors.. Historical: - Allergies: 07:11 Aspirin; mb9 07:11 Motrin; mb9 - Home Meds: 07:11 Atenolol Oral [Active]; mb9 - PMHx: 07:11 Hypertensive disorder; Chronic obstructive lung disease; mb9 - PSHx: 07:11 right leg; mb9 - Immunization history:: Adult Immunizations up to date. - Infectious Disease History:: Denies. - Social history:: Smoking status: Patient reports the use of cigarette tobacco products, smokes one pack cigarettes per day. ROS: 07:26 Constitutional: Negative for fever, and chills. Cardiovascular: Negative for chest ms3 pain, and palpitations. 07:26 MS/Extremity: Negative for injury and deformity, Skin: Negative for injury, rash, and discoloration, 07:26 Respiratory: Positive for shortness of breath, Exam: 07:26 Constitutional: This is a well developed, well nourished patient who is awake, alert, ms3 and in no acute distress. Neck: Trachea midline, no cervical lymphadenopathy. Supple, full range of motion without nuchal rigidity, or vertebral point tenderness. No Meningismus. Chest/axilla: Normal chest wall appearance and motion. Nontender with no deformity. Cardiovascular: Regular rate and rhythm with a normal S1 and S2. No gallops, murmurs, or rubs. Normal PMI, no JVD. No pulse deficits. 07:26 Respiratory: the patient does not display signs of respiratory distress, Respirations: normal, Breath sounds: wheezing: expiratory is heard diffusely, 08:07 ECG was reviewed by the Attending Physician. ms3 Vital Signs: 07:10 BP 141 / 125; Pulse 78; Resp 18; Temp 98; Pulse Ox 100% on R/A; Weight 58.97 kg; Height mb9 5 ft. 7 in. ; Pain 0/10; 07:51 BP 152 / 96; Pulse 84; Resp 18; Pulse Ox 95% on R/A; mb9 08:04 BP 174 / 107; Pulse 77; Resp 18; Pulse Ox 97% on R/A; mb9 08:47 BP 178 / 98; Pulse 80; Resp 18; Pulse Ox 99% on R/A; mb9 10:15 BP 196 / 87; Pulse 79; Resp 18; Pulse Ox 98% on R/A; mb9 10:55 BP 194 / 92; Pulse 70; Resp 18; Pulse Ox 100% on R/A; mb9 11:11 BP 181 / 99; Pulse 67; Resp 18; Pulse Ox 98% on R/A; mb9 11:45 BP 184 / 88; Pulse 62; Resp 18; Pulse Ox 97% on R/A; mb9 07:10 Body Mass Index 20.36 (58.97 kg, 170.18 cm) mb9 07:10 Pain Scale: Adult mb9 MDM: 07:26 Differential diagnosis: Chronic Obstructive Pulmonary Disease Dehydration versus hunger.ms3 07:34 Patient medically screened. ms3 09:55 ED course: Patient reporting chest pain at this time with fall 2 days prior. Will ms3 obtain CT head and neck. 10:51 Data reviewed: vital signs, nurses notes, lab test result(s), EKG, radiologic studies, ms3 and as a result, I will transfer patient. Consideration of Admission/Observation Will transfer. I considered the following discharge prescriptions or medication management in the emergency department Medications were administered in the Emergency Department. See MAR. Independent interpretation of the following test(s) in the Emergency Department EKG: See my EKG interpretation above X-Ray: My interpretation is CXR image reviewed by me does not reveal PTX or PNA. Counseling: I had a detailed discussion with the patient and/or guardian regarding the historical points, exam findings, and any diagnostic results supporting the discharge/admit diagnosis, lab results, radiology results, the need to transfer to another facility[facility] required specialist. 03/19 07:20 Order name: Basic Metabolic Panel; Complete Time: 09:08 ms3 03/19 07:20 Order name: CBC with Diff; Complete Time: 09:08 ms3 03/19 07:20 Order name: Troponin HS; Complete Time: 09:08 ms3 03/19 07:20 Order name: XRAY Chest (1 view) ms3 03/19 08:06 Order name: CT Chest For PE Angio ms3 03/19 09:55 Order name: CT Head C Spine ms3 03/19 07:20 Order name: Cardiac monitoring; Complete Time: 07:22 ms3 03/19 07:20 Order name: EKG - Nurse/Tech; Complete Time: 07:22 ms3 03/19 07:20 Order name: IV Saline Lock; Complete Time: 07:22 ms3 03/19 07:20 Order name: Labs collected and sent; Complete Time: 07:22 ms3 03/19 07:20 Order name: O2 Per Protocol; Complete Time: 07:22 ms3 03/19 07:20 Order name: O2 Sat Monitoring; Complete Time: 07:22 ms3 EC:07 Rate is 75 beats/min. Rhythm is regular. QRS [place] is Normal. [place] interval is normal. ms3 Clinical impression: NSR w/ Non-specific ST/T Changes and with PVC. Interpreted by me. Reviewed by me. Administered Medications: 07:29 Drug: Albuterol Inhalation 2.5 mg Inhalation every 20 minutes x3 Route: Inhalation; mb9 07:29 Drug: MethylPrednisoLONE IVP 125 mg IVP once Route: IVP; Site: right forearm; mb9 08:48 Follow up: Response: No adverse reaction mb9 07:49 Drug: Albuterol Inhalation 2.5 mg Inhalation every 20 minutes x3 Route: Inhalation; mb9 08:09 Drug: Albuterol Inhalation 2.5 mg Inhalation every 20 minutes x3 Route: Inhalation; mb9 10:41 Follow up: Response: No adverse reaction mb9 10:26 Drug: Labetalol IV 10 mg IV at calculated rate once Route: IV; Rate: calculated rate; mb9 Site: right forearm; 10:42 Follow up: Response: No adverse reaction; IV Status: Completed infusion mb9 10:58 Drug: Labetalol IV 10 mg IV at calculated rate once Route: IV; Rate: calculated rate; mb9 Site: right forearm; 11:12 Follow up: Response: No adverse reaction; IV Status: Completed infusion mb9 Disposition: 12:14 Critical Care:. ms3 Disposition Summary: 03/19/24 10:49 Transfer Ordered Notes: Transfer Location: [facility] ms3 Reason: Higher level of care ms3 Condition: Stable ms3 Problem: new ms3 Symptoms: are unchanged ms3 Accepting Physician: Dr Christin Guardado(03/19/24 12:41) me1 Diagnosis - Shortness of breath ms3 - Chest pain, unspecified ms3 - Essential (primary) hypertension ms3 Forms: - Medication Reconciliation Form ms3 - SBAR form ms3 Critical care time excluding procedures: 12:14 Critical care time: Bedside Care: 35 minutes. Total time: 35 minutes ms3 Signatures: Dispatcher [employer] EDMS Vipin Dsouza DO DO ms3 Tg Rivera RN RN mb9 Annmarie Thompson RN RN me1 Corrections: (The following items were deleted from the chart) 07:12 07:11 PSHx: None; mb9 mb9 07:21 07:21 Chest Single View+[email or web address] ordered. EDMS EDMS 11:27 10:49 ms3 ms3 12:41 11:27 Dr Christin Guardado ms3 me1
[2024-03-19 12:47] VITALS: TEMP 98
[2024-03-19 12:56] VITALS: BP 184/88; O2SAT 97
== END 2024-03-19 12:41 | disposition short-term general hospital (02) ==
LOC: ER 07:00
DX: R06.02 Shortness of breath (principal); R07.9 Chest pain, unspecified; I10 Essential (primary) hypertension; J44.9 Chronic obstructive pulmonary disease, unspecified; F17.210 Nicotine dependence, cigarettes, uncomplicated
CPT/HCPCS: 85025; 80048; 36415; 84484; 70450; 72125; 71275; 71045; Q9967; J7613; J2919

== ENCOUNTER 2024-04-05 12:59 | Inpatient (IN) | payer OTHER ==
[2024-04-05] MEDS ORDERED: FENTANYL CITR 100 MCG/2 ML ONE (13:22)
[2024-04-05] MEDS ORDERED: ONDANSETRON 4 MG/2 ML VIAL ONE ×2 (13:23→16:04)
[2024-04-05] MEDS ORDERED: NA CHLORIDE 0.9% 500 ML ONE ×2 (13:23→16:04)
[2024-04-05 13:26] LABS: Absolute Basophils 0.1 K/uL (0-0.5); Absolute Lymphocytes (CBC) 0.5 K/uL (0.7-4.9); Absolute Monocytes 1.1 K/uL (0.1-1.3); Absolute Neutrophil 29.8 K/uL (1.8-8.0); Basophils % 0.2 % (0-1.3); Hemoglobin 12.1 g/dL (13.6-17.9); Lymphocytes % 1.5 % (15.3-44.8); MCHC 32.7 g/dL (32.0-36.0); MCV 91.8 fL (80-100); MPV 8.6 fL (7.6-11.3); Monocytes % 3.5 % (3.3-12.3); Neutrophils % 94.8 % (41.7-73.7); Platelets 249 thou/uL (152-406); RBC Red Blood Cell Count 4.03 M/uL (4.33-5.43); Red Cell Distribution Width 13.7 % (12.1-15.2)
[2024-04-05 13:43] LABS: Albumin 2.9 g/dL (3.4-5.0); Albumin/Globulin Ratio 0.7 (1.1-1.8); Anion Gap 15.6 mEq/L (5.0-15.0); Bilirubin Total 0.9 mg/dL (0.2-1.0); Globulin 4.3 g/dL (2.3-3.5); Potassium 4.6 mEq/L (3.5-5.1); Protein, Total 7.2 g/dL (6.4-8.2)
[2024-04-05 14:39] LABS: Differential Total Cells Count 100; Lymphocytes 2 % (15-42); Monocytes 3 % (0-10); Segmented Neutrophils 95 % (40-80)
[2024-04-05 14:42] LABS: Blood Morphology Comment NOT SEEN (NOT SEEN); Hypersegmented Neutrophils 3+; Platelet Estimate ADEQ
--- NOTE | 2024-04-05 15:09 | RAD REPORT ---
EXAM DESCRIPTION: RAD - Knee Left 3 View - 04/05/2024 2:55 pm CLINICAL HISTORY: Left knee pain FINDINGS: No fracture or dislocation is seen. 4.2 centimeter calcified loose body within the knee joint. Moderate osteoarthritis medial compartment. Mild lateral subluxation tibia on femur. Osteoporosis.
[2024-04-05] MEDS ORDERED: MORPHINE 4 MG/ML SYR ONE (16:04)
--- NOTE | 2024-04-05 16:45 | ER ---
Nurse's Notes [facility] Name: Jerod Whitehead Age: 68 yrs Sex: Male : 1955 Arrival Date: 04/05/2024 Time: 12:59 Bed 15 Private MD: Diagnosis: Fall on same level, unspecified;Displaced intertrochanteric fracture of left femur, initial encounter for closed fracture;Elevated white blood cell count;COPD/ Chronic obstructive pulmonary disease, unspecified;Unilateral inguinal hernia, without obstruction or gangrene-reducable Presentation: 04/05 13:00 Chief complaint: EMS states: Severe left knee pain that radiates to left hip that hb started today. Denies injury. Coronavirus screen: At this time, the client does not indicate any symptoms associated with coronavirus-19. Ebola Screen: No symptoms or risks identified at this time. Initial Sepsis Screen: Does the patient meet any 2 criteria? No. Patient's initial sepsis screen is negative. Does the patient have a suspected source of infection? No. Patient's initial sepsis screen is negative. Risk Assessment: Do you want to hurt yourself or someone else? Patient reports no desire to harm self or others. Onset of symptoms was April 05, 2024. 13:00 Method Of Arrival: EMS: [facility] hb 13:00 Acuity: DAVID 4 hb 13:20 Acuity: DAVID 3 mb9 Historical: - Allergies: 13:01 Aspirin; hb 13:01 Motrin; hb - Home Meds: 13:01 Atenolol Oral [Active]; hb - PMHx: 13:01 Chronic obstructive lung disease; Hypertensive disorder; hb - PSHx: 13:01 right leg; hb - Immunization history:: Adult Immunizations up to date. - Infectious Disease History:: Denies. - Social history:: Smoking status: . Screenin:11 [facility] ED Fall Risk Assessment (Adult) History of falling in the last 3 months, mb9 including since admission No falls in past 3 months (0 pts) Confusion or Disorientation No (0 pts) Intoxicated or Sedated No (0 pts) Impaired Gait Yes (1 pt) Mobility Assist Device Used No (0 pt) Altered Elimination No (0 pt) Score/Fall Risk Level 3 or more points = High Risk Oriented to surroundings, Maintained a safe environment, Educated pt \T\ family on fall prevention, incl call for assistance when getting out of bed. Abuse screen: Denies threats or abuse. Nutritional screening: No deficits noted. Tuberculosis screening: No symptoms or risk factors identified. Assessment: 13:10 General: Appears in no apparent distress. Behavior is cooperative. Pain: Complains of mb9 pain in left hip Pain radiates to left patella Pain currently is 10 out of 10 on a pain scale. Quality of pain is described as throbbing, Pain began suddenly, Is intermittent. Neuro: Ruffin Agitation-Sedation Scale (RASS): 0 - Alert and Calm Level of Consciousness is awake, alert, obeys commands, Oriented to person, place, time, situation, Appropriate for age. Cardiovascular: Patient's skin is warm and dry. Respiratory: Airway is patent Respiratory effort is even, unlabored, Respiratory pattern is regular, symmetrical. GI: No signs and/or symptoms were reported involving the gastrointestinal system. : No signs and/or symptoms were reported regarding the genitourinary system. EENT: No signs and/or symptoms were reported regarding the EENT system. Derm: Skin is pink, warm \T\ dry. Musculoskeletal: Range of motion: limited in left hip and left knee. 14:25 Reassessment: No changes from previously documented assessment. Patient and/or family mb9 updated on plan of care and expected duration. Pain level reassessed. Patient is alert, oriented x 3, equal unlabored respirations, skin warm/dry/pink. 16:30 Reassessment: No changes from previously documented assessment. Patient and/or family mb9 updated on plan of care and expected duration. Pain level reassessed. Patient is alert, oriented x 3, equal unlabored respirations, skin warm/dry/pink. 18:00 Reassessment: No changes from previously documented assessment. Patient and/or family mb9 updated on plan of care and expected duration. Pain level reassessed. Patient is alert, oriented x 3, equal unlabored respirations, skin warm/dry/pink. 19:07 Reassessment: Patient and/or family updated on plan of care and expected duration. Pain rg5 level reassessed. Patient is alert, oriented x 3, equal unlabored respirations, skin warm/dry/pink. Pain: Complains of pain in knee Pain currently is 3 out of 10 on a pain scale. Quality of pain is described as aching. Neuro: Oriented to person, place, time, situation. Cardiovascular: Patient's skin is warm and dry. Respiratory: Airway is patent Respiratory effort is even, unlabored, Respiratory pattern is regular, symmetrical. 20:00 Reassessment: No changes from previously documented assessment. Patient and/or family rg5 updated on plan of care and expected duration. Pain level reassessed. Patient is alert, oriented x 3, equal unlabored respirations, skin warm/dry/pink. 21:00 Reassessment: No changes from previously documented assessment. Patient and/or family rg5 updated on plan of care and expected duration. Pain level reassessed. 22:45 Reassessment: No changes from previously documented assessment. Patient and/or family rg5 updated on plan of care and expected duration. Pain level reassessed. Patient is alert, oriented x 3, equal unlabored respirations, skin warm/dry/pink. 23:00 Reassessment: No changes from previously documented assessment. Patient and/or family rg5 updated on plan of care and expected duration. Pain level reassessed. 04/06 00:14 Reassessment: Patient and/or family updated on plan of care and expected duration. Pain rg5 level reassessed. Patient is alert, oriented x 3, equal unlabored respirations, skin warm/dry/pink. Patient states feeling better. 01:03 Reassessment: No changes from previously documented assessment. Patient and/or family rg5 updated on plan of care and expected duration. Pain level reassessed. Patient is alert, oriented x 3, equal unlabored respirations, skin warm/dry/pink. Vital Signs: 04/05 13:00 BP 132 / 98; Pulse 88; Resp 16; Temp 97.6; Pulse Ox 100% on R/A; Weight 55.79 kg; hb Height 5 ft. 10 in. ; Pain 10/10; 14:25 BP 153 / 88; Pulse 74; Resp 16; Pulse Ox 100% on R/A; mb9 16:30 BP 148 / 89; Pulse 95; Resp 16; Pulse Ox 100% on R/A; mb9 18:58 BP 122 / 89; Pulse 84; Resp 18; Pulse Ox 100% on R/A; mb9 19:10 BP 137 / 88; Pulse 82; Resp 18 S; Pulse Ox 97% on R/A; Pain 0/10; rg5 20:40 BP 148 / 79; Pulse 74; Resp 18; Temp 98(O); Pulse Ox 96% on R/A; Pain 0/10; rg5 21:25 BP 127 / 76; Pulse 72; Resp 17; Pulse Ox 99% on R/A; Pain 0/10; rg5 22:35 BP 130 / 75; Pulse 70; Resp 17; Pulse Ox 96% on R/A; Pain 0/10; rg5 04/06 00:13 BP 113 / 68; Pulse 73; Resp 17; Pulse Ox 97% on R/A; Pain 0/10; rg5 01:02 BP 113 / 68; Pulse 76; Resp 18; Temp 98(O); Pulse Ox 96% on R/A; Pain 0/10; rg5 04/05 13:00 Body Mass Index 17.65 (55.79 kg, 177.8 cm) hb 04/05 13:00 Pain Scale: Adult hb 19:10 Pain Scale: Adult rg5 20:40 Pain Scale: Adult rg5 21:25 Pain Scale: Adult rg5 22:35 Pain Scale: Adult rg5 04/06 00:13 Pain Scale: Adult rg5 01:02 Pain Scale: Adult rg5 ED Course: 04/05 13:00 Patient arrived in ED. hb 13:01 Triage completed. hb 13:02 Arm band placed on. hb 13:06 Tg Rivera, TATA is Primary Nurse. mb9 13:08 Raphael Esposito MD is Attending Physician. ananth 13:11 Bed in low position. Call light in reach. Side rails up X 1. Provided Education on: mb9 press call light if needing anything. Client placed on continuous cardiac and pulse oximetry monitoring. NIBP monitoring applied. 13:19 Initial lab(s) drawn, by me, sent to lab. Inserted saline lock: 18 gauge in right mb9 forearm, using aseptic technique. Blood collected. Flushed with 10 mL NS. 14:56 Knee Left 3 View XRAY In Process Unspecified. EDMS 16:40 Paged inside lab to come draw blood cultures. jr12 16:46 initiated a transfer with Matt Matos Rn from the [facility]. eb 16:47 Pelvis XRAY In Process Unspecified. EDMS 16:47 Femur Left XRAY In Process Unspecified. EDMS 16:47 Chest Single View XRAY In Process Unspecified. EDMS 17:34 Tim Gonzalez MD is Hospitalizing Provider. ananth 18:18 US Extremity Venous W Compression Roberto In Process Unspecified. EDMS 18:25 CT Chest Abdomen Pelvis W/O Contrast In Process Unspecified. EDMS 19:07 Assisted with urinal. rg5 19:15 Door closed. Noise minimized. Warm blanket given. rg5 19:20 Resting quietly. Appears to be sleeping. Awaiting bed assignment. rg5 19:20 No provider procedures requiring assistance completed. Patient admitted, IV remains in rg5 place. intact, Pressure dressing applied. 22:45 Resting quietly. Appears to be sleeping. rg5 04/06 00:14 Resting quietly. Appears to be sleeping. Awaiting bed assignment. rg5 01:03 Resting quietly. Appears to be sleeping. rg5 Administered Medications: 04/05 13:24 Drug: Ondansetron IVP 4 mg IVP once; over 2 minutes Route: IVP; Site: right forearm; mb9 18:32 Follow up: Response: No adverse reaction mb9 13:27 Drug: fentaNYL (PF) IVP 50 mcg IVP once Route: IVP; Site: right forearm; mb9 18:32 Follow up: Response: No adverse reaction mb9 13:27 Drug: NS 0.9% IV 500 ml IV at bolus once Route: IV; Rate: bolus; Site: right forearm; mb9 18:32 Follow up: Response: No adverse reaction; IV Status: Completed infusion mb9 16:10 Drug: Ondansetron IVP 4 mg IVP once; over 2 minutes Route: IVP; Site: right forearm; mb9 18:31 Follow up: Response: No adverse reaction mb9 16:12 Drug: morphine IVP or IV 4 mg IVP once over 4 mins Route: IVP; Infused Over: 4 mins; mb9 Site: right forearm; 18:32 Follow up: Response: No adverse reaction mb9 16:25 Drug: NS 0.9% IV 500 ml IV at bolus once Route: IV; Rate: bolus; Site: right hand; mb9 18:32 Follow up: Response: No adverse reaction; IV Status: Completed infusion mb9 Medication: 13:11 VIS not applicable for this client. mb9 Outcome: 16:44 ER care complete, transfer ordered by . ananth 17:36 Decision to Hospitalize by Provider. [facility] 04/06 01:32 Admitted to ICU accompanied by nurse, rgNadia Condition: stable Instructed on the need for admit, 02:25 Patient left the ED. rg5 Signatures: Dispatcher [employer] EDRaphael Scott MD MD cha Baxter, Heather, RN RN Nichelle Shanks, Tg Carreon RN RN mb9 Marcy Aleg[address] [facility] Corky Welsh RN RN rg5 Corrections: (The following items were deleted from the chart) :04/05 19:10 Report given to TATA Fried 04/06 19:07 Door closed. Noise minimized. Warm blanket given. rg5 rg5
--- NOTE | 2024-04-05 16:45 | EDPHYS ---
Physician Documentation [facility] Name: Jerod Whitehead Age: 68 yrs Sex: Male : 1955 Arrival Date: 04/05/2024 Time: 12:59 Bed 15 Private MD: ED Physician Raphael Esposito HPI: 04/05 16:33 This 68 yrs old Male presents to ER via EMS with complaints of Knee Pain. ananth 16:33 The patient or guardian reports decreased range of motion, pain, swelling. sustained ananth from a fall, the left lower extremity is shortened, left leg is externally rotated, The patient is not able to ambulate. Patient is not able to bear weight. There is no radiation of the patient's discomfort. The complaints affect the left knee. Onset: The symptoms/episode began/occurred 14 day(s) ago. Modifying factors: The symptoms are alleviated by remaining still, the symptoms are aggravated by any movement. Associated signs and symptoms: Loss of consciousness: the patient experienced no loss of consciousness. Severity of symptoms: At their worst the symptoms were moderate, in the emergency department the symptoms are actually worse. The patient has experienced similar episodes in the past, for two weeks. Historical: - Allergies: 13:01 Aspirin; hb 13:01 Motrin; hb - Home Meds: 13:01 Atenolol Oral [Active]; hb - PMHx: 13:01 Chronic obstructive lung disease; Hypertensive disorder; hb - PSHx: 13:01 right leg; hb - Immunization history:: Adult Immunizations up to date. - Infectious Disease History:: Denies. - Social history:: Smoking status: . ROS: 16:34 Constitutional: Negative for fever, chills, and weight loss, Eyes: Negative for injury, ananth pain, redness, and discharge, ENT: Negative for injury, pain, and discharge, Neck: Negative for injury, pain, and swelling, Cardiovascular: Negative for chest pain, palpitations, and edema, Respiratory: Negative for shortness of breath, cough, wheezing, and pleuritic chest pain, Abdomen/GI: Negative for abdominal pain, nausea, vomiting, diarrhea, and constipation, Back: Negative for injury and pain, : Negative for injury, bleeding, discharge, and swelling, Skin: Negative for injury, rash, and discoloration, Psych: Negative for depression, anxiety, suicide ideation, homicidal ideation, and hallucinations, Allergy/Immunology: Negative for hives, rash, and allergies, Endocrine: Negative for neck swelling, polydipsia, polyuria, polyphagia, and marked weight changes, Hematologic/Lymphatic: Negative for swollen nodes, abnormal bleeding, and unusual bruising, 16:34 Abdomen/GI: Positive for of the right lower quadrant, right direct inguinal hernia, reduceable, 16:34 MS/extremity: Positive for decreased range of motion, pain, swelling, tenderness, of the left hip and left upper thigh, Exam: 16:36 Constitutional: This is a well developed, well nourished patient who is awake, alert, ananth and in no acute distress. Head/Face: Normocephalic, atraumatic. Eyes: Pupils equal round and reactive to light, extra-ocular motions intact. Lids and lashes normal. Conjunctiva and sclera are non-icteric and not injected. Cornea within normal limits. Periorbital areas with no swelling, redness, or edema. ENT: Nares patent. No nasal discharge, no septal abnormalities noted. Tympanic membranes are normal and external auditory canals are clear. Oropharynx with no redness, swelling, or masses, exudates, or evidence of obstruction, uvula midline. Mucous membranes moist. Neck: Trachea midline, no thyromegaly or masses palpated, and no cervical lymphadenopathy. Supple, full range of motion without nuchal rigidity, or vertebral point tenderness. No Meningismus. Chest/axilla: Normal chest wall appearance and motion. Nontender with no deformity. No lesions are appreciated. Cardiovascular: Regular rate and rhythm with a normal S1 and S2. No gallops, murmurs, or rubs. Normal PMI, no JVD. No pulse deficits. Respiratory: Lungs have equal breath sounds bilaterally, clear to auscultation and percussion. No rales, rhonchi or wheezes noted. No increased work of breathing, no retractions or nasal flaring. Abdomen/GI: Soft, non-tender, with normal bowel sounds. No distension or tympany. No guarding or rebound. No evidence of tenderness throughout. Back: No spinal tenderness. No costovertebral tenderness. Full range of motion. Male : Normal genitalia with no discharge or lesions. Skin: Warm, dry with normal turgor. Normal color with no rashes, no lesions, and no evidence of cellulitis. Neuro: Awake and alert, GCS 15, oriented to person, place, time, and situation. Cranial nerves II-XII grossly intact. Motor strength 5/5 in all extremities. Sensory grossly intact. Cerebellar exam normal. Normal gait. Psych: Awake, alert, with orientation to person, place and time. Behavior, mood, and affect are within normal limits. 16:36 Musculoskeletal/extremity: Extremities: grossly normal except: noted in the left hip and left upper thigh: decreased ROM, deformity, ROM: limited active range of motion due to pain, limited passive range of motion due to pain, Circulation is intact in all extremities. Sensation intact. Compartment Syndrome exam of affected extremity: is normal. Weight bearing: is unable to bear weight, DVT Exam: negative Homans' sign noted on exam, no appreciated bluish discoloration, no erythema, no increased warmth, pain, swelling, tenderness, Vital Signs: 13:00 BP 132 / 98; Pulse 88; Resp 16; Temp 97.6; Pulse Ox 100% on R/A; Weight 55.79 kg; hb Height 5 ft. 10 in. ; Pain 10/10; 14:25 BP 153 / 88; Pulse 74; Resp 16; Pulse Ox 100% on R/A; mb9 16:30 BP 148 / 89; Pulse 95; Resp 16; Pulse Ox 100% on R/A; mb9 18:58 BP 122 / 89; Pulse 84; Resp 18; Pulse Ox 100% on R/A; mb9 19:10 BP 137 / 88; Pulse 82; Resp 18 S; Pulse Ox 97% on R/A; Pain 0/10; rg5 20:40 BP 148 / 79; Pulse 74; Resp 18; Temp 98(O); Pulse Ox 96% on R/A; Pain 0/10; rg5 21:25 BP 127 / 76; Pulse 72; Resp 17; Pulse Ox 99% on R/A; Pain 0/10; rg5 22:35 BP 130 / 75; Pulse 70; Resp 17; Pulse Ox 96% on R/A; Pain 0/10; rg5 04/06 00:13 BP 113 / 68; Pulse 73; Resp 17; Pulse Ox 97% on R/A; Pain 0/10; rg5 01:02 BP 113 / 68; Pulse 76; Resp 18; Temp 98(O); Pulse Ox 96% on R/A; Pain 0/10; rg5 04/05 13:00 Body Mass Index 17.65 (55.79 kg, 177.8 cm) hb 04/05 13:00 Pain Scale: Adult hb 19:10 Pain Scale: Adult rg5 20:40 Pain Scale: Adult rg5 21:25 Pain Scale: Adult rg5 22:35 Pain Scale: Adult rg5 04/06 00:13 Pain Scale: Adult rg5 01:02 Pain Scale: Adult rg5 MDM: 04/05 13:09 Patient medically screened. ananth 16:37 Differential diagnosis: hip fracture, intertrochanteric fracture, femoral neck ananth fracture, femoral shaft fracture, bursitis, arthritis, strain. Differential Diagnosis altered mental status, sepsis, flu. Data reviewed: vital signs, nurses notes, lab test result(s), EKG, radiologic studies, plain films. Consideration of Admission/Observation Patient was admitted/placed on observation. Escalation of care including admission/observation considered. I considered the following discharge prescriptions or medication management in the emergency department Medications were administered in the Emergency Department. See MAR. Independent interpretation of the following test(s) in the Emergency Department EKG: See my EKG interpretation above. Test considered but Not performed: CT: no ct abd pelvis. Historians other than the Patient: pt well informed. Care significantly affected by the following chronic conditions: Hypertension, Chronic Obstructive Pulmonary Disease. Counseling: I had a detailed discussion with the patient and/or guardian regarding the historical points, exam findings, and any diagnostic results supporting the discharge/admit diagnosis, lab results, radiology results, the need for further work-up and treatment in the hospital. 04/05 13:13 Order name: CBC with Diff; Complete Time: 15:34 [facility] 04/05 13:13 Order name: Comprehensive Metabolic Panel; Complete Time: 15:34 [facility] 04/05 13:30 Order name: Manual Differential; Complete Time: 15:34 [facility] 04/05 15:35 Order name: Lactate w/ 2H reflex if indic. [facility] 04/05 15:35 Order name: Blood Culture Adult (2) [facility] 04/05 15:43 Order name: PT-INR [facility] 04/05 15:43 Order name: Troponin High Sensitivity [facility] 04/05 19:07 Order name: Protime (+INR) [facility] 04/05 19:07 Order name: PTT, Activated Partial Thromb [facility] 04/05 19:07 Order name: Urinalysis w/ reflexes [facility] 04/05 19:07 Order name: Basic Metabolic Panel [facility] 04/05 19:07 Order name: Basic Metabolic Panel [facility] 04/05 19:07 Order name: CBC with Automated Diff [facility] 04/05 19:07 Order name: CBC with Automated Diff [facility] 04/05 19:07 Order name: Lipid Profile [facility] 04/05 19:07 Order name: Lipid Profile [facility] 04/06 01:56 Order name: Urinalysis w/ reflexes [facility] 04/05 13:13 Order name: Knee Left 3 View XRAY; Complete Time: 15:34 [facility] 04/05 15:43 Order name: Pelvis XRAY; Complete Time: 17:29 [facility] 04/05 15:43 Order name: Femur Left XRAY; Complete Time: 17:29 [facility] 04/05 15:43 Order name: Chest Single View XRAY; Complete Time: 17:29 [facility] 04/05 17:13 Order name: US Extremity Venous W Compression Roberto [facility] 04/05 17:14 Order name: CT Chest Abdomen Pelvis W/O Contrast [facility] 04/05 19:03 Order name: Echo with Doppler [facility] 04/05 15:43 Order name: EKG; Complete Time: 15:43 [facility] 04/05 19:07 Order name: CONS Physician Consult [facility] 04/05 13:19 Order name: IV Saline Lock; Complete Time: 13:20 mb9 Administered Medications: 13:24 Drug: Ondansetron IVP 4 mg IVP once; over 2 minutes Route: IVP; Site: right forearm; mb9 18:32 Follow up: Response: No adverse reaction mb9 13:27 Drug: fentaNYL (PF) IVP 50 mcg IVP once Route: IVP; Site: right forearm; mb9 18:32 Follow up: Response: No adverse reaction mb9 13:27 Drug: NS 0.9% IV 500 ml IV at bolus once Route: IV; Rate: bolus; Site: right forearm; mb9 18:32 Follow up: Response: No adverse reaction; IV Status: Completed infusion mb9 16:10 Drug: Ondansetron IVP 4 mg IVP once; over 2 minutes Route: IVP; Site: right forearm; mb9 18:31 Follow up: Response: No adverse reaction mb9 16:12 Drug: morphine IVP or IV 4 mg IVP once over 4 mins Route: IVP; Infused Over: 4 mins; mb9 Site: right forearm; 18:32 Follow up: Response: No adverse reaction mb9 16:25 Drug: NS 0.9% IV 500 ml IV at bolus once Route: IV; Rate: bolus; Site: right hand; mb9 18:32 Follow up: Response: No adverse reaction; IV Status: Completed infusion mb9 Disposition Summary: 04/05/24 17:36 Hospitalization Ordered Notes: Hospitalization Status: Inpatient Admission ananth Provider: Tim Gonzalez cha Condition: Fair(04/05/24 17:36) ananth Problem: new(04/05/24 17:36) ananth Symptoms: have improved(04/05/24 17:36) ananth Bed/Room Type: Standard ananth Location: Intensive Care Unit(04/06/24 01:20) cg Room Assignment: 7-(04/06/24 01:20) cg Diagnosis - Fall on same level, unspecified(04/05/24 17:36) ananth - Displaced intertrochanteric fracture of left femur, initial encounter for closed ananth fracture(04/05/24 17:36) - Elevated white blood cell count(04/05/24 17:36) ananth - COPD/ Chronic obstructive pulmonary disease, unspecified(04/05/24 17:36) ananth - Unilateral inguinal hernia, without obstruction or gangrene - reducable ananth Forms: - Medication Reconciliation Form ananth - SBAR form ananth - Leadership Thank You Letter ananth Signatures: Dispatcher [employer] EDRaphael Scott MD MD cha Garcia, Cindy, RN RN Liliana Fleming RN RN hb Wilkerson, Mary Beth, RN RN mb9 Corrections: (The following items were deleted from the chart) 13:13 13:13 CBC+H.LAB.BRZ ordered. EDMS EDMS 13:13 13:13 COMPREHENSIVE METABOLIC PANEL+C.LAB.BRZ ordered. EDMS EDMS 13:13 13:13 Knee Left 3 View+RAD.RAD.BRZ ordered. EDMS EDMS 15:43 15:43 Chest Single View+RAD.RAD.BRZ ordered. EDMS EDMS 15:50 15:43 Hip Left 2 View+RAD.RAD.BRZ ordered. EDMS EDMS 17:15 17:15 Extrem Venous W Compression Roberto+US.RAD.BRZ ordered. EDMS EDMS 17:15 17:15 Chest Abdomen Pelvis Wo Con+CT.RAD.BRZ ordered. EDMS EDMS 17:31 16:44 [facility] ananth ananth 17:31 16:44 [facility] ananth ananth 17:31 16:44 Higher level of care ananth ananth 17: 16:44 Stable ananth ananth 17: 16:44 new ananth ananth 17: 16:44 are unchanged ananth ananth 17: 16:44 Displaced intertrochanteric fracture of left femur, initial encounter for closed ananth fracture ananth 17: 16:44 COPD/ Chronic obstructive pulmonary disease, unspecified ananth ananth 17:31 16:44 Fall on same level, unspecified ananth ananth 17: 16:44 Abdominal aortic aneurysm, without rupture - 5.2 cm aortic root ananth ananth 17:31 16:44 Elevated white blood cell count ananth ananth 23:06 17:36 Telemetry/MedSurg (Inpatient) ananth cg 23:06 17:36 ananth cg 23:10 23:06 Intensive Care Unit cg cg 23:10 23:06 7- cg cg 04/06 01:02 04/05 23:10 [facility] ER HOLD cg cg 04/06 01:02 04/05 23:10 ERHOLD- cg cg 04/06 01:20 01:02 Telemetry/MedSurg (Inpatient) cg cg 01:20 01:02 cg cg
--- NOTE | 2024-04-05 17:09 | RAD REPORT ---
EXAM DESCRIPTION: Primo Single View04/05/2024 4:46 pm CLINICAL HISTORY: Cough COMPARISON: February 2024 FINDINGS: Moderate COPD The lungs appear clear of acute infiltrate. The heart is normal size
--- NOTE | 2024-04-05 17:14 | RAD REPORT ---
EXAM DESCRIPTION: RAD - Pelvis - 04/05/2024 4:46 pm CLINICAL HISTORY: Pelvic pain status post injury FINDINGS: Intertrochanteric fracture left femur. Avulsion lesser trochanter. Fracture extends into t he greater trochanter. Mild to moderate displacement of fracture fragments and angulation present at the fracture site No dislocation
--- NOTE | 2024-04-05 17:16 | RAD REPORT ---
EXAM DESCRIPTION: RAD - Femur Left - 04/05/2024 4:46 pm CLINICAL HISTORY: Left leg pain FINDINGS: Intertrochanteric fracture left femur. Avulsion lesser trochanter. Fracture extends into t he greater trochanter. Mild to moderate displacement of fracture fragments and angulation present at the fracture site No dislocation
[2024-04-05 17:36] LABS: PT Prothrombin Time 13.2 SECONDS (9.4-12.5); Protime INR 1.18
--- NOTE | 2024-04-05 18:46 | RAD REPORT ---
EXAM DESCRIPTION: USExtrem Venous W Compress Bil04/05/2024 6:17 pm CLINICAL HISTORY: Leg pain COMPARISON: none FINDINGS: The common femoral, superficial femoral, greater saphenous, popliteal and posterior tibial veins bilaterally are compressible and demonstrate augmentation. Doppler demonstrates good flow. Grayscale, color and spectral analysis performed on all vessels IMPRESSION: No evidence of deep venous thrombosis involving either lower extremity.
--- NOTE | 2024-04-05 18:46 | RAD REPORT ---
EXAM DESCRIPTION: CT - Chest Abd Pelvis Wo Con - 04/05/2024 6:23 pm CLINICAL HISTORY: Fall with chest and abdominal pain COMPARISON: February 2024 CT chest TECHNIQUE: Computed axial tomography of the chest, abdomen and pelvis was obtained. Oral contrast wa s given. IV contrast was not requested. All CT scans are performed using dose optimization technique as appropriate and may include automated exposure control or mA/KV adjustment according to patient size. FINDINGS: The evaluation of mediastinum, santos, vessels and solid organs is limited secondary to the lack of IV contrast administration A lung contusion is not present. Mild to moderate tree-in-bud opacities left lower lobe. Mild tree-in-bud opacities lingula. Moderate COPD A pleural effusion is not present. A pericardial effusion is not seen. A mediastinal hematoma is not seen. The liver, spleen, pancreas, adrenals, kidneys and bladder do not demonstrate a traumatic injury. Intertrochanteric fracture left femur. Avulsion lesser trochanter. The fracture extends into the grea ter trochanter. Mild to moderate displacement fracture fragments. Varus angulation present at fractur e site. Hematoma left pectineus muscle There is no evidence of diverticulitis. Marked bladder distention. Moderate to marked bilateral hydronephrosis and hydroureter. Small left inguinal hernia contains fat. Right inguinal hernia contains nondilated small bowel. The hernia is large. Mild anterior subluxation L4 on L5-L5 S1 3 centimeter right adrenal mass. Hounsfield unit -8. This is compatible with an adenoma. No follow-up imaging recommended. Left renal cysts. Largest 6.7 centimeters. Atherosclerosis. Heron and screws affix right femoral fractu re Aneurysm aortic root 4.6 centimeters IMPRESSION: No acute traumatic injury involving the chest, abdomen or pelvis is seen Mild to moderate tree-in-bud opacities left lung may indicate an atypical pneumonia [id number] bilateral hydronephrosis and hydroureter may the result of marked bladder distenti on Large right hernia containing nondilated small bowel Left hip fracture
[2024-04-05] MEDS ORDERED: ONDANSETRON 4 MG/2 ML VIAL IV PRN (19:02)
--- NOTE | 2024-04-05 19:09 | P.HP ---
Certification for Inpatient Patient admitted to: Inpatient With expected LOS: >2 Midnights Practitioner: I am a practitioner with admitting privileges, knowledge of patient current condition, hospital course, and medical plan of care. Services: Services provided to patient in accordance with Admission requirements found in Title 42 Section 412.3 of the Code of Federal Regulations Patient History Date of Service: 04/05/24 Reason for admission: Hip fx History of Present Illness: Patient is a 68-year-old male with a past medical history of hypertension, 5.2 cm aortic root dilatation/aneurysm and COPD. He presented to the ER complaining of left hip pain after fall that occurred 2 weeks ago. He has been found to have a left hip fracture. Patient is hemodynamically stable. ER contacted orthopedic surgery and cardiology. He has been cleared for surgery. Patient was seen for his 5.3 aortic root aneurysm at [facility]. He told me that CT surgery recommended to treat this medically first. Allergies ibuprofen [From Motrin] Allergy (Unverified 03/07/18 18:05) Unknown aspirin Adverse Reaction (Intermediate, Verified 11/09/12 18:54) Nausea/Vomiting Physical Examination - Physical Exam General: In no apparent distress, Cachectic HEENT: Atraumatic, Normocephalic Respiratory: Clear to auscultation bilaterally, Normal air movement Cardiovascular: No edema, Normal pulses, Regular rate/rhythm, Normal S1 S2 Gastrointestinal: Other (Scaphoid abdomen) Musculoskeletal: Other (Left hip tender to palpation) Neurological: Normal speech - Studies Laboratory Data (last 24 hrs) 04/05/24 04/05/24 04/05/24 17:06 13:19 13:19 WBC 31.50 H Hgb 12.1 L Hct 37.0 L Plt Count 249 PT 13.2 H INR 1.18 Sodium 134 L Potassium 4.6 BUN 69 H Creatinine 1.89 H Glucose 90 Total Bilirubin 0.9 AST 24 ALT 40 Alkaline Phosphatase 90 Assessment and Plan - Problems (Diagnosis) (1) Hip fracture, left Current Visit: Yes Status: Acute (2) Aortic root aneurysm Current Visit: Yes Status: Acute (3) COPD (chronic obstructive pulmonary disease) Current Visit: Yes Status: Acute (4) Hypertension Current Visit: Yes Status: Acute - Plan Assessments Patient is a 68-year-old male with a past medical history of hypertension, aortic root aneurysm and COPD. He is presenting to the ER with a left hip pain which was later found to be left intertrochanteric fracture. Left intertrochanteric Aortic root aneurysm5.2 cm Hypertension COPD IOANA Plan: Admit inpatient Telemetry monitoring Multimodal pain regimen DVT prophylaxis IV fluid for renal insufficiency Consult placed to cardiology and orthopedic surgery Patient is full code Resume home meds upon reconciliation - Advance Directives Does patient have a Living Will: No Does patient have a Durable POA for Healthcare: No
[2024-04-05] MEDS: NA CHLORIDE 0.9% 1,000 ML IV SCH (20:00)
[2024-04-06] MEDS ORDERED: ALBUTEROL 2.5 MG/3 ML NEB SOL ONE (01:47)
[2024-04-06] MEDS: ALBUTEROL 2.5 MG/3 ML NEB SOL NEB SCH (01:47)
[2024-04-06] MEDS: IPRATROPIUM BROM 0.5MG/2.5ML NEB SCH (01:47)
[2024-04-06] MEDS ORDERED: IPRATROPIUM BROM 0.5MG/2.5ML ONE (01:47)
[2024-04-06] MEDS: HYDROMORPHONE HCL 1 MG/ML INJ IV PRN (02:34)
[2024-04-06] MEDS: D5 0.45 NS 1,000 ML IV SCH (02:34)
[2024-04-06] MEDS: HEPARIN 5000 UNIT/ML 1 ML VIAL SQ SCH (02:34)
[2024-04-06 06:20] LABS: Absolute Basophils 0.1 K/uL (0-0.5); Absolute Lymphocytes (CBC) 0.4 K/uL (0.7-4.9); Absolute Neutrophil 22.3 K/uL (1.8-8.0); Basophils % 0.2 % (0-1.3); Hematocrit 33.2 % (39.6-49.0); Hemoglobin 10.8 g/dL (13.6-17.9); Lymphocytes % 1.8 % (15.3-44.8); MCHC 32.7 g/dL (32.0-36.0); MCV 91.8 fL (80-100); MPV 8.6 fL (7.6-11.3); Monocytes % 4.3 % (3.3-12.3); Neutrophils % 93.7 % (41.7-73.7); Platelets 190 thou/uL (152-406); RBC Red Blood Cell Count 3.62 M/uL (4.33-5.43); Red Cell Distribution Width 13.6 % (12.1-15.2)
[2024-04-06 06:21] LABS: PT Prothrombin Time 12.5 SECONDS (9.4-12.5); PTT, Activated Partial Thromb 26.2 SECONDS (24.3-36.9); Protime INR 1.12
[2024-04-06 06:29] LABS: Anion Gap 9.5 mEq/L (5.0-15.0); Potassium 3.5 mEq/L (3.5-5.1)
[2024-04-06] MEDS: KCL 20 MEQ/100 mL IVPB 20 MEQ/100 ML BAG IV SCH (08:21)
[2024-04-06 08:28] LABS: Specific Gravity 1.013 (1.005-1.030); Sqamous Epithelial <5 /HPF (None Seen); Transitional Epithelial <5 /HPF (None Seen); Urine Bacteria >50 /HPF (<20); Urine Bilirubin NEGATIVE (Negative); Urine Blood Negative (Negative); Urine Clarity Extremely Turbid (Clear); Urine Color Light-Yellow (Yellow); Urine Culture Reflex Order REFLEXED; Urine Glucose NEGATIVE (Negative); Urine Ketones NEGATIVE (Negative); Urine Microscopic Reflex YN ORDER UMIC; Urine Mucus Slight /HPF (None Seen); Urine Nitrite NEGATIVE (Negative); Urine Protein TRACE (Negative); Urine RBC <5 /HPF (None Seen); Urine Urobilinogen Normal (Normal); Urine WBC >50 /HPF (<5); Urine pH 7.5 (5.0-7.0)
[2024-04-06] MEDS ORDERED: LIDOCAINE 1% MPF 5 ML VIAL ONE (10:04)
[2024-04-06] MEDS ORDERED: ONDANSETRON 4 MG/2 ML VIAL ONE (10:04)
[2024-04-06] MEDS ORDERED: ETOMIDATE 20 MG/10 ML VIAL IV ONE (10:05)
[2024-04-06] MEDS ORDERED: dexAMETHasone 4 MG/ML VIAL ONE (10:05)
[2024-04-06] MEDS ORDERED: MORPHINE 10 MG/ML VIAL ONE (10:06)
[2024-04-06] MEDS ORDERED: MIDAZOLAM HCL 2 MG/2 ML INJ ONE (10:06)
[2024-04-06] MEDS ORDERED: FENTANYL CITR 100 MCG/2 ML ONE (10:06)
--- NOTE | 2024-04-06 10:09 | CON ---
Date of Consultation: 04/06/2024 History Of Present Illness: This is my first time seeing this patient to my knowledge. He is a 68-y ear-old male who has a history of being seen for feeling poorly approximately 2 weeks ago after falli ng. He was seen at the emergency department and was noted at that time to have an aortic aneurysm. He was transferred to the care of the [facility] [place] where they decided to treat the aneur ysm with medical management. Essentially, has been unable to ambulate for approximately 2 weeks with significant pain related to his left lower extremity. He was re-seen back in the emergency departme yesterday with complaints of his pain in his hip, was not improving after his fall. An x-ray was taken at that time which demonstrates a comminuted intertrochanteric fracture with displacement. Physical Examination: Today, all of his long bones and joints are palpated without pain or crepitation with the exception o f his left hip which is painful to any movement or manipulation. Imaging: Review of x-rays demonstrates a displaced intertrochanteric fracture on the left. Assessment: A 68-year-old with a probable subacute left intertrochanteric fracture which was displac ed. Plan: At this time, I have discussed with the hospitalist and he has been seen by Cardiology. It wa s felt that no further medical intervention could be beneficial to him that he is at somewhat risk fo r surgery. However, I have discussed this with the patient and other risks associated with left hip regarding operative and nonoperative management. We will at this time proceed with left closed reduc tion versus open reduction and intramedullary louise fixation or other indicated procedures today. All of his questions were otherwise invited and answered. /MURALI Voice ID: [id number] Report ID: [id number]
[2024-04-06] MEDS: Ringers Lactate 1,000 ML IV ONE (10:36)
[2024-04-06] MEDS: ALBUTEROL 2.5 MG/3 ML NEB SOL ONE (10:56)
[2024-04-06] MEDS: TRANEXAMIC ACID 1,000 MG/10 ML VIAL IV ONE (11:02)
[2024-04-06] MEDS: CEFAZOLIN SODIUM 1 GM/VIAL ONE (11:02)
--- NOTE | 2024-04-06 12:19 | P.BOP ---
Preoperative diagnosis: left hip fracture (IT) Postoperative diagnosis: same Primary procedure: left hip RICHAR fixation Estimated blood loss: 100 ccs Anesthesia: General Transferred to: Recovery Room Condition: Good
[2024-04-06] MEDS: HYDROMORPHONE HCL 1 MG/ML INJ ONE (12:44)
--- NOTE | 2024-04-06 12:54 | OP ---
Date of Procedure: 04/06/2024 Surgeon: Parviz Patel MD Preoperative Diagnosis: Left hip comminuted intertrochanteric fracture with delayed presentation. Postoperative Diagnosis: Left hip comminuted intertrochanteric fracture with delayed presentation. Procedure Performed: Left intertrochanteric fracture, closed reduction with intramedullary louise fixat ion. Estimated Blood Loss: 100 cc. Complications: There were no complications. Indications For Operation: Mr. Whitehead is a 68-year-old male, who arrived in the hospital yesterday w ith continued complaints of pain in left hip after a fall approximately 2 weeks ago. It is unknown e xactly when he quit walking as he has been using crutches, but now can barely move. He does describe a fall 2 weeks ago, but was apparently doing fairly well for some time. It is somewhat unclear. Lb eloina, when seen in the emergency department, x-rays were taken, which demonstrated a left intertroch anteric fracture, which was highly displaced. It does not appear to be chronic, although may be shay yed presentation. Risks, benefits, and alternatives to different methods of treating this were discu ssed with the patient. At this time, we will proceed with closed or open reduction with intramedulla ry fixation. The patient states he understands things as presented and wishes to proceed. Description Of Procedure: The patient was taken to the operating room and placed in supine position. General anesthesia was easily obtained by the Anesthesia staff. Following this, he was then proper ly positioned on the fracture table and a reduction maneuver was performed, which allowed for very go od reduction. After this, his left lower extremity was then prepped and draped in the usual fashion for the procedure and a vertical incision was made proximal to the greater trochanter. The greater t rochanter was palpated. It appeared to be somewhat comminuted. Therefore, decision was made to plac e the starting portal point a little bit more medial, more on the base of the femoral neck as it is c ommonly done in this situation to avoid distraction of the 2 fracture pieces. This was then establis hed using a seasonal retail merchandiser as it was over-reamed and a guide pin was placed without difficulty. After t his, a seasonal retail merchandiser was then used to ream down past the lesser trochanter and the louise was placed witho ut undue pressure. It was placed at appropriate depth and a cephalomedullary screw followed by an an ti-rotation screw were both placed. These were checked using biplanar C-arm radiography to ensure th ey were near center-center in the head. With regard to the lag screw, after this, attention was then turned distally, where a distal interlock was placed in normal fashion. The hip was then examined u sing biplanar C-arm radiography. The trochanter was a little bit anterior, but it was felt due to co mminution. However, it does appear to have the head well captured and transfixed using the cephalome dullary screws and rods as appropriately placed. Following this, the wound was copiously irrigated a nd the fascia closed in a watertight fashion using heavy Vicryl sutures. This was followed by closur e of the skin using 2-0 Vicryl sutures followed by mary. The patient was then placed in Aquacel d ressing, awakened, taken to recovery room in good condition. There were no complications. /MURALI Voice ID: [id number] Report ID: [id number]
--- NOTE | 2024-04-06 13:39 | P.PN ---
Date of Service: 04/06/24 Subjective: No acute events overnight Complains of left hip pain Orthopedic surgery at bedside ROS: 10 point ROS as noted above, otherwise negative Physical exam GEN: Alert, oriented, NAD HEENT: Normal conjunctiva, sclera anicteric CV: Regular rate and rhythm, no edema Pulm: Nonlabored respirations on room air ABD: Soft, nontender, nondistended MSK: No joint tenderness Integumentary: No rashes Neuro: Normal speech, normal affect Vitals reviewed Assessment Left intertrochanteric femur fracture S/P RICHAR fixation 04/06 Leukocytosis Acute kidney injury History of aortic root aneurysm5.2 cm Multivessel coronary atherosclerosis COPD Hypertension COVID + 03/27 Plan Left intertrochanteric femur fracture S/P RICHAR fixation 04/06 Had surgery today PT eval, touchdown weightbearing as tolerated DVT prophylaxis ordered with Lovenox Will need 3 weeks of DVT prophylaxis followed by 3 weeks of daily aspirin As needed pain medications Leukocytosis Unclear etiology at this time No clear source of infection Was recently discharged from [facility] on 04/01 white blood cell count was 7 at that time They have been given steroids as he was COVID-positive White blood cell count trending down Acute kidney injury Improving with IV fluids, creatinine at discharge from [facility] was 0.8, peaked at 1.69 at their facility Continue IV fluids Consult nephrology for any worsening History of aortic root aneurysm5.2 cm Multivessel coronary atherosclerosis Evaluated at [facility] Had negative PET stress Did have imaging that showed multivessel CAD Denies any chest pain COPD As needed nebulizer treatments Hypertension Continue home medications when verified COVID + 03/27 Noted Afebrile at this time VTE: Lovenox Code: Full Dispo: 2 to 3 days Time Spent Managing Pts Care (In Minutes): 35
[2024-04-06] MEDS: TAMSULOSIN 0.4 MG SR CAP PO ONE (14:19)
--- NOTE | 2024-04-06 15:28 | RAD REPORT ---
EXAM: HPN2Lt HISTORY:LT HIP RODDING FINDINGS/IMPRESSION: 6 intraoperative fluoroscopic images were submitted demonstrating left hip ORIF with supplementary sc rew and intramedullary louise. Cumulative dose: 10.1 mg. Fluoro time: 1.5 minutes.
[2024-04-06] MEDS: CEFAZOLIN 1 GM in NA CHLORIDE 0.9% 50 ML IVPB SCH (16:28)
[2024-04-07 06:23] LABS: Hematocrit 30.6 % (39.6-49.0); Hemoglobin 9.7 g/dL (13.6-17.9); MCH 29.9 pg (27.0-35.0); MCHC 31.7 g/dL (32.0-36.0); MCV 94.4 fL (80-100); MPV 9.1 fL (7.6-11.3); Platelets 158 thou/uL (152-406); RBC Red Blood Cell Count 3.24 M/uL (4.33-5.43); Red Cell Distribution Width 13.7 % (12.1-15.2)
[2024-04-07 06:45] LABS: Anion Gap 9.2 mEq/L (5.0-15.0); Phosphorus 1.8 mg/dL (2.5-4.9)
[2024-04-07 06:53] LABS: Potassium 4.2 mEq/L (3.5-5.1)
[2024-04-07] MEDS: POLYETHYL GLY 3350 17 GM/DOSE PO ONE (08:15)
[2024-04-07] MEDS: POTASS/SODIUM PHOSPHATE 1 PKT POWD.PACK PO SCH (08:15)
[2024-04-07] MEDS: TAMSULOSIN 0.4 MG SR CAP PO SCH (08:15)
[2024-04-07] MEDS: ENOXAPARIN 40 MG/0.4 ML SQ SCH (08:16)
[2024-04-07] MEDS: METOPROLOL TAR 25 MG TAB PO SCH (09:54)
--- NOTE | 2024-04-07 10:02 | P.PN ---
Date of Service: 04/07/24 Subjective: Complains of left hip pain Reports constipation Gallo catheter placed yesterday, draining well In ICU as overflow ROS: 10 point ROS as noted above, otherwise negative Physical exam GEN: Alert, oriented, NAD HEENT: Normal conjunctiva, sclera anicteric CV: Regular rate and rhythm, no edema Pulm: Nonlabored respirations on room air ABD: Soft, nontender, nondistended, Gallo catheter in place MSK: No joint tenderness Integumentary: No rashes, dressing to left hip CDI Neuro: Normal speech, normal affect Vitals reviewed Assessment Left intertrochanteric femur fracture S/P RICHAR fixation 04/06 Sepsis secondary to UTI, atypical pneumonia Urinary retention, moderate to marked bilateral hydronephrosis and hydroureter/bladder distention S/P Gallo catheter placement 04/06 a.m. Acute kidney injury-improved Constipation History of aortic root aneurysm4.6 cm Multivessel coronary atherosclerosis COPD Hypertension COVID + 03/27 Plan Left intertrochanteric femur fracture S/P RICHAR fixation 04/06 Had surgery 04/06 PT eval, touchdown weightbearing as tolerated DVT prophylaxis ordered with Lovenox Will need 3 weeks of DVT prophylaxis followed by 3 weeks of daily aspirin As needed pain medications Gram-negative bacteremia, sepsis secondary to UTI/atypical pneumonia 07/26 preliminary blood cultures positive for gram-negative rods UA concerning for urinary tract infection when Gallo catheter was placed CT chest abdomen pelvis with possible atypical pneumonia-was recently COVID- positive diagnosed on 03/27 Was recently discharged from [facility] on 04/01 white blood cell count was 7 at that time Follow-up blood cultures, urine cultures Continue antibiotics, ID consulted White blood cell count trending down Acute kidney injury Urinary retention, moderate to marked bilateral hydronephrosis and hydroureter/bladder distention S/P Gallo catheter placement 04/06 a.m. Improving with IV fluids, creatinine at discharge from [facility] was 0.8, peaked at 1.69 at their facility Improving, likely partially related to urinary retention-likely chronic Flomax continued Repeat renal ultrasound ordered for 04/09 to reevaluate hydro Continue IV fluids Consult nephrology for any worsening Constipation Reports no BM for few days Given dose of MiraLAX 04/07 History of aortic root aneurysm4.6 cm Multivessel coronary atherosclerosis Evaluated at [facility] Had negative PET stress Did have imaging that showed multivessel CAD Denies any chest pain Will need further evaluation as an outpatient by cardiology COPD As needed nebulizer treatments Hypertension Continue home medications when verified COVID + 03/27 Noted Afebrile at this time VTE: Lovenox Code: Full Dispo: 2 to 3 days Time Spent Managing Pts Care (In Minutes): 35
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
[2024-04-07] MEDS: BUPROPION HCL XL 150 MG TAB PO SCH (13:09)
--- NOTE | 2024-04-07 13:50 | ECHO ---
HEIGHT: 5 ft 10 in WEIGHT: 123 lb 8 oz DATE OF STUDY: 04/07/[address]: Prince Cesia Delgado MD 2-DIMENSIONAL: YES M.MODE: YES DOPPLER: YES COLOR FLOW: YES TDS: NO PORTABLE: YES DEFINITY: NO BUBBLE STUDY: NO DIAGNOSIS: AORTIC ROOT ANEURYSM CARDIAC HISTORY: CATHERIZATION: SURGERY: PROSTHETIC VALVE: PACEMAKER: MEASUREMENTS (cm) DIASTOLIC (NORMALS) SYSTOLIC (NORMALS) IVSd 1.2 (0.6-1.2) LA Diam 3.5 (1.9-4.0) LVEF 57% LVIDd 4.1 (3.5-5.7) LVIDs 2.9 (2.0-3.5) %FS 30% LVPWd 1.1 (0.6-1.2) Ao Diam 4.0 (2.0-3.7) 2 DIMENSIONAL ASSESSMENT: RIGHT ATRIUM: NORMAL LEFT ATRIUM: NORMAL RIGHT VENTRICLE: NORMAL LEFT VENTRICLE: MILD LEFT VENTRICULAR HYPERTROPHY TRICUSPID VALVE: TRACE TRICUSPID REGURGITATION MITRAL VALVE: MILD MITRAL REGURGITATION PULMONIC VALVE: NORMAL AORTIC VALVE: MILD AORTIC INSUFFICIENCY PERICARDIAL EFFUSION: TRIVIAL AORTIC ROOT: DILATED LEFT VENTRICULAR WALL MOTION: NORMAL. DOPPLER/COLOR FLOW: SEE BELOW. COMMENTS: 1. NORMAL LEFT VENTRICULAR EJECTION FRACTION 55-60% WITH NORMAL WALL MOTION. 2. MILD CONCENTRIC LEFT VENTRICULAR HYPERTROPHY. 3. MILD TO MODERATE AORTIC INSUFFICIENCY. 4. MODERATE DIASTOLIC DYSFUNCTION. 5. RIGHT VENTRICULAR SYSTOLIC PRESSURE IS 45-50 mmHg. 6. MILDLY DILATED AORTIC ROOT AT 4.3 CENTIMETERS. TECHNOLOGIST: ELLIOTT VALENZUELA
[2024-04-07] MEDS: AMLODIPINE 2.5 MG TAB PO SCH (19:52)
[2024-04-07] MEDS: ATORVASTATIN 40 MG TAB PO SCH (19:52)
[2024-04-07] MEDS: ENSURE ENLIVE 237 ML CAN PO SCH (19:53)
[2024-04-08 05:29] VITALS: BMI 17.8
[2024-04-08 06:08] LABS: Hematocrit 28.1 % (39.6-49.0); Hemoglobin 9.5 g/dL (13.6-17.9); MCH 30.8 pg (27.0-35.0); MCHC 33.6 g/dL (32.0-36.0); MCV 91.5 fL (80-100); MPV 8.7 fL (7.6-11.3); Platelets 170 thou/uL (152-406); RBC Red Blood Cell Count 3.08 M/uL (4.33-5.43); Red Cell Distribution Width 13.1 % (12.1-15.2)
[2024-04-08 06:23] LABS: Anion Gap 6.7 mEq/L (5.0-15.0); Magnesium 1.5 mg/dL (1.6-2.4); Potassium 3.7 mEq/L (3.5-5.1)
[2024-04-08] MEDS: Magnesium Sulfate 2gm IVPB 2 G/50 ML BAG IV ONE (06:36)
[2024-04-08] MEDS: POTASSIUM PHOS IN 0.9 % NACL 15 MMOL/250 ML BAG IV ONE (06:36)
[2024-04-08] MEDS: SPIRONOLACTONE 25 MG TABLET PO SCH (08:14)
[2024-04-08] MEDS: CIPROFLOXACIN 400mg IV 400 MG/200 ML BAG IV SCH (08:15)
[2024-04-08] MEDS: FOLIC ACID 1 MG TABLET PO SCH (08:15)
[2024-04-08] MEDS: [UNRECOGNIZED DRUG - OTHER] IH SCH (08:16)
--- NOTE | 2024-04-08 09:03 | P.PN ---
Subjective Date of Service: 04/08/24 Chief Complaint: Hip fx Subjective: No new changes, No C/O voiced, Tolerating diet, Ambulating, Improving Review of Systems 10-point ROS is otherwise unremarkable Physical Examination - Vital Signs Temperature: 98.8 F Blood Pressure: 132/68 Pulse: 76 Respirations: 14 Pulse Ox (%): 98 - Physical Exam General: Alert, In no apparent distress HEENT: Atraumatic, PERRLA, EOMI Neck: Supple, JVD not distended Respiratory: Clear to auscultation bilaterally, Normal air movement Cardiovascular: Regular rate/rhythm, Normal S1 S2 Gastrointestinal: Normal bowel sounds, No tenderness Musculoskeletal: No tenderness Integumentary: No rashes Neurological: Normal speech, Normal tone, Normal affect Lymphatics: No axilla or inguinal lymphadenopathy - Studies Microbiology Data (last 24 hrs): 04/05/24 17:17 Blood - Blood Anaerobic Blood Culture - Final Enterobacter Cloacae 04/05/24 17:17 Blood - Blood Gram Stain - Final Medications List Reviewed: Yes Assessment And Plan - Current Problems (Diagnosis) (1) Aortic root aneurysm Current Visit: Yes Status: Acute Plan: CTA on 02/2024, measure 5.2 cm in diameter, patient underwent vascular surgery evaluation in medical center and plan was to monitor it - Metoprolol 25 mg po bid - outpatient follow up to monitor. (2) Hip fracture, left Current Visit: Yes Status: Acute Plan: doing well s/p surgery. (3) Hypertension Current Visit: Yes Status: Acute Plan: need tight BP control metoprolol 25 mg po BID
--- NOTE | 2024-04-08 11:10 | P.PN ---
Date of Service: 04/08/24 Subjective: Awake and c/o pain to left leg Dressing CDI working with PT Redraw blood cultures ROS: 10 point ROS as noted above, otherwise negative Physical exam GEN: Alert and oriented x3, NAD, conversing HEENT: Normal conjunctiva, sclera anicteric CV: RRR, S1 S2 present, no edema Pulm: Nonlabored respirations on 2LNC ABD: Soft on palpation, ND/NT, Gallo catheter in place MSK: No joint tenderness, left leg tenderness, 2+ peripheral pulses Integumentary: No rashes, dressing to left hip CDI Neuro: Normal speech, normal affect Vitals reviewed Assessment Left intertrochanteric femur fracture S/P RICHAR fixation 04/06 Sepsis secondary to UTI, atypical pneumonia Urinary retention, moderate to marked bilateral hydronephrosis and hydroureter/bladder distention S/P Gallo catheter placement 04/06 a.m. Acute kidney injury-Resolved Hypophosphatemia Hypomagnesemia Constipation History of aortic root aneurysm4.6 cm Multivessel coronary atherosclerosis COPD Hypertension COVID + 03/27 Plan Left intertrochanteric femur fracture S/P RICHAR fixation 04/06 Surgery 04/06 PT eval, touchdown weightbearing as tolerated DVT prophylaxis ordered with Lovenox Will need 3 weeks of DVT prophylaxis followed by 3 weeks of daily aspirin As needed pain medications Gram-negative bacteremia, sepsis secondary to UTI/atypical pneumonia 07/26 preliminary blood cultures positive for gram-negative rods UA concerning for urinary tract infection when Gallo catheter was placed CT chest abdomen pelvis with possible atypical pneumonia-was recently COVID- positive diagnosed on 03/27 Was recently discharged from [facility] on 04/01 white blood cell count was 7 at that time blood and urine cultures Enterobacter Cloacae Blood culture redraw Cipro started 04/08, ID consulted White blood cell count continues trending down Acute kidney injury-resolved Urinary retention, moderate to marked bilateral hydronephrosis and hydroureter/bladder distention S/P Gallo catheter placement 04/06 a.m. Improving with IV fluids, creatinine at discharge from [facility] was 0.8, peaked at 1.69 at their facility Improving, likely partially related to urinary retention-likely chronic Flomax continued Repeat renal ultrasound ordered for 04/09 to reevaluate hydro Continue IV fluids Consult nephrology for any worsening Hypophosphatemia Hypomagnesemia Phos 1.0, mag 1.5 Replace monitor and replace PRN Constipation Reports no BM for few days Given dose of MiraLAX 04/07 History of aortic root aneurysm4.6 cm Multivessel coronary atherosclerosis Evaluated at [facility] Had negative PET stress Did have imaging that showed multivessel CAD Denies any chest pain Will need further evaluation as an outpatient by cardiology COPD As needed nebulizer treatments Hypertension Continue home medications when verified COVID + 03/27 Noted Afebrile at this time VTE: Lovenox Code: Full Dispo: 2 to 3 days <Yue Llamas - Last Filed: 04/08/24 14:31> Patient seen and examined. Plan of care discussed with Ms. Llamas. Patient states he feels a lot better today. Patient blood pressure slightly high in the morning but mostly normotensive today. Plan: Aggressive blood pressure control with a target systolic of 120. Heart rate within acceptable range. Blood culture yielded enterobacteria. Continue Cipro. Continue PT. Patient is being evaluated for SNF placement. <frida garcia - Last Filed: 04/09/24 18:08>
--- NOTE | 2024-04-08 15:05 | CON ---
History Of Present Illness: This is a 68-year-old male. I was consulted for bacteremia and urinary tract infection secondary to Enterobacter cloacae. Patient has significant past medical history of l eft hip fracture after a fall which has been treated earlier this month. Patient also has significan t history of hypertension, aortic root dilation, aneurysm, and COPD secondary to tobacco use of a pac k per day. The patient came in to the hospital with left hip discomfort. Denies any headache, nause a, vomiting, chest pain, abdominal pain, constipation, or diarrhea. Past Medical History: As per HPI. Right inguinal hernia for last 10 years. Social History: Tobacco positive. Alcohol negative. Family History: Noncontributory. Medications: Cefazolin, which has been discontinued today and started on Cipro. See MARs for other medications. Allergies: IBUPROFEN. ASPIRIN. Review of Systems: 10-point review was performed. Physical Examination: General: This is a 68-year-old male, lying in bed, not in any acute cardiopulmonary distress. Vital Signs: Temperature 98, pulse 76, respiration 20, blood pressure 132/68. HEENT: Unremarkable. Neck: Supple. Lungs: Basal crackles. Heart: S1, S2. Regular. Abdomen: Soft, nontender. Bowel sounds present. Right inguinal hernia noted. Extremities: No edema. : Gallo catheter in place. Laboratory Data: Shows WBC down to 14,000 from 31,000. Hemoglobin 9.5, platelets are 170. Chemistr y shows BUN of 23, creatinine 0.6. Albumin level is 2.9. Micro data; blood cultures from 04/05 and urine cultures from 04/06 are growing Enterobacter cloacae resistant to cefazolin and sensitive to ci profloxacin. Assessment And Plan: Enterobacter cloacae bacteremia in a 68-year-old male with recent left hip frac ture and right inguinal hernia and urinary tract infection with Enterobacter cloacae, with Gallo cath eter in place. Heavy tobacco use. The patient was counseled regarding tobacco usage with history of chronic obstructive pulmonary disease. CT abdomen negative for any involvement of trauma. Mild-to- moderate tree-in-bud opacity, left lung. Large right inguinal hernia. Nondilated small bowels, with left hip fracture. Moderate to marked bilateral hydronephrosis and hydroureter, may be result from the marked bladder distention. Continue antibiotic for 2 weeks. Get an EKG to check for QT interval . Continue current treatment and monitor patient for signs of infection with WBC and fever trends. Leukocytosis is improving. Anemia of chronic disease. We will follow patient as needed. Thank you for consult. REGULO/MURALI Voice ID: [id number] Report ID: [id number]
[2024-04-08] MEDS: CEFAZOLIN SODIUM 2 GM in NA CHLORIDE 0.9% 50 ML IVPB SCH (15:55)
--- NOTE | 2024-04-08 17:01 | EKG ---
Test Date: 2024-04-06 Test Time: 09:24:11 Quality Assurance Consultant: CAM MEASUREMENT RESULTS: Intervals: Rate: 78 VA: 142 QRSD: 72 QT: 374 QTc: 426 Imogene: P: 98 VA: 142 QRS: 9 T: 78 INTERPRETIVE STATEMENTS: Sinus rhythm with premature atrial complexes Nonspecific ST and T wave abnormality Abnormal ECG Compared to ECG 03/19/2024 07:20:02 ST (T wave) deviation now present Fusion complex(es) no longer present Ventricular premature complex(es) no longer present Left ventricular hypertrophy no longer present Early repolarization no longer present Electronically Signed On 04-08-24 16:55:40 CDT by Ricky Chavira
[2024-04-09 08:04] LABS: Hematocrit 30.2 % (39.6-49.0); Hemoglobin 9.8 g/dL (13.6-17.9); MCHC 32.5 g/dL (32.0-36.0); MCV 92.1 fL (80-100); MPV 9.1 fL (7.6-11.3); Platelets 170 thou/uL (152-406); RBC Red Blood Cell Count 3.28 M/uL (4.33-5.43); Red Cell Distribution Width 13.3 % (12.1-15.2)
[2024-04-09] MEDS: NICOTINE 14 MG/PAT TD SCH (08:05)
[2024-04-09 08:16] LABS: Anion Gap 6.7 mEq/L (5.0-15.0); Magnesium 1.5 mg/dL (1.6-2.4); Potassium 3.7 mEq/L (3.5-5.1)
[2024-04-09 08:20] LABS: Phosphorus 1.4 mg/dL (2.5-4.9)
--- NOTE | 2024-04-09 08:56 | RAD REPORT ---
EXAMINATION: US RETROPERITONEUM CLINICAL INDICATION: [facility] MAIN re eval hydro after catheter insertion TECHNIQUE: Real-time ultrasonography of the abdomen was performed. COMPARISON: 04/05/[address] FINDINGS: RIGHT KIDNEY: Right renal length measurement: 13.6 cm. Normal in echogenicity and size. No calculus, or solid mass. Mildly prominent renal pelvis and lower calyx. Incidentally noted anechoic subcapsular 1.1 cm cyst near the lower pole. Peripheral 3 mm cortical echogenic focus, suggests a par enchymal calcification rather than a calculus. LEFT KIDNEY: Left renal length measurement: 13.4 cm. Normal in echogenicity and size. No calculus, or solid mass. Moderate pelvicalyceal dilation. Contour lobulation. Exophytic lower pole thin-walled anechoic 6.9 cm cyst URINARY BLADDER: Partially decompressed with Gallo catheter in place. ADDITIONAL FINDINGS: None. IMPRESSION: Moderate left and mild right hydronephrosis. Incidentally noted bilateral renal cysts. Gallo catheter present within a partially decompressed bladder.
[2024-04-09] MEDS: POTASSIUM PHOS IN 0.9 % NACL 15 MMOL/250 ML BAG IV ONE (09:35)
[2024-04-09] MEDS: Magnesium Sulfate 2gm IVPB 2 G/50 ML BAG IV ONE (09:35)
--- NOTE | 2024-04-09 12:05 | P.PN ---
Subjective Date of Service: 04/09/24 Chief Complaint: Hip fx Subjective: No new changes, No C/O voiced, Tolerating diet, Ambulating, Improving Review of Systems 10-point ROS is otherwise unremarkable Physical Examination - Vital Signs Temperature: 98.0 F Blood Pressure: 156/78 Pulse: 67 Respirations: 18 Pulse Ox (%): 96 - Physical Exam General: Alert, In no apparent distress HEENT: Atraumatic, PERRLA, EOMI Neck: Supple, JVD not distended Respiratory: Clear to auscultation bilaterally, Normal air movement Cardiovascular: Regular rate/rhythm, Normal S1 S2 Gastrointestinal: Normal bowel sounds, No tenderness Musculoskeletal: No tenderness Integumentary: No rashes Neurological: Normal speech, Normal tone, Normal affect Lymphatics: No axilla or inguinal lymphadenopathy - Studies Medications List Reviewed: Yes Assessment And Plan - Current Problems (Diagnosis) (1) Aortic root aneurysm Current Visit: Yes Status: Acute Plan: CTA on 02/2024, measure 5.2 cm in diameter, patient underwent vascular surgery evaluation in medical center and plan was to monitor it - Metoprolol 25 mg po bid - Spirnolactone 25 mg daily - Increase Norvasc to 5 mg daily - outpatient follow up to monitor. (2) Hip fracture, left Current Visit: Yes Status: Acute Plan: doing well s/p surgery. (3) Hypertension Current Visit: Yes Status: Acute Plan: need tight BP control metoprolol 25 mg po BID spirnolactone 25 mg kris increase Norvasc to 5 mg daily
--- NOTE | 2024-04-09 12:33 | PN ---
Subjective: Patient lying in bed. Feels much better today. Denies any other problems. Objective: Vital Signs: Reviewed. Lungs: Basal crackles. Heart: S1, S2. Regular. Abdomen: Soft, nontender. Bowel sounds present. Extremity: No edema. Laboratory Data: WBC 14.3, hemoglobin 9.8, platelets are 170. Chemistry shows BUN of 11, creatinine 0.5. Blood cultures and urine cultures interpret Enterobacter cloacae. Patient is currently being treated with cefazolin and Cipro. Assessment And Plan: Urosepsis and bacteremia secondary to Enterobacter cloacae. Patient is current ly status post left intertrochanteric femur fracture, status post CR IM fixation on 04/06. The patie nt's kidney function has improved. Continue antibiotic for 2 weeks. After negative blood cultures, we will follow patient as needed. NF/MODL Voice ID: [id number] Report ID: [id number]
--- NOTE | 2024-04-09 18:07 | P.PN ---
Date of Service: 04/09/24 Subjective: Awake working with therapy, continues with pain to left lower extremity Redraw blood cultures negative to date ROS: 10 point ROS as noted above, otherwise negative Physical exam GEN: AAO x3, NAD, conversing HEENT: Normal conjunctiva, sclera anicteric CV: NSR, S1 S2 present, no edema Pulm: Nonlabored respirations on 2LNC ABD: Soft and benign on palpation, ND/NT, Nunez catheter in place MSK: left leg tenderness, 2+ peripheral pulses Integumentary: No rashes, dressing to left hip CDI Neuro: Normal speech, normal affect Vitals reviewed Assessment Left intertrochanteric femur fracture S/P RICHAR fixation 04/06 Sepsis secondary to UTI, atypical pneumonia Urinary retention, moderate to marked bilateral hydronephrosis and hydroureter/bladder distention S/P Nunez catheter placement 04/06 a.m. Acute kidney injury-Resolved Hypophosphatemia Hypomagnesemia Constipation History of aortic root aneurysm4.6 cm Multivessel coronary atherosclerosis COPD Hypertension COVID + 03/27 Plan Left intertrochanteric femur fracture S/P RICHAR fixation 04/06 Surgery 04/06 PT eval, touchdown weightbearing as tolerated DVT prophylaxis ordered with Lovenox Will need 3 weeks of DVT prophylaxis followed by 3 weeks of daily aspirin As needed pain medications Gram-negative bacteremia, sepsis secondary to UTI/atypical pneumonia 07/26 preliminary blood cultures positive for gram-negative rods UA concerning for urinary tract infection when Nunez catheter was placed CT chest abdomen pelvis with possible atypical pneumonia-was recently COVID- positive diagnosed on 03/27 Was recently discharged from [facility] on 04/01 white blood cell count was 7 at that time blood and urine cultures Enterobacter Cloacae Blood culture redraw- negative to date Cipro started 04/08, ID consulted White blood cell count continues trending down Acute kidney injury-resolved Urinary retention, moderate to marked bilateral hydronephrosis and hydroureter/bladder distention S/P Nunez catheter placement 04/06 a.m. Bilateral Renal Cysts Improving with IV fluids, creatinine at discharge from [facility] was 0.8, peaked at 1.69 at their facility Improving, likely partially related to urinary retention-likely chronic Flomax continued 04/09 Repeat renal ultrasound reports moderate left and mild right hydronephrosis, incidentally noted bilateral renal cysts, Nunez catheter present within a partially decompressed bladder." Continue IV fluids Consult nephrology for any worsening Follow up outpatient with Dr. Hanson for nunez catheter management Hypophosphatemia Hypomagnesemia Phos 1.4, mag 1.5 Replace monitor and replace PRN Constipation Reports no BM for few days Given dose of MiraLAX 04/07 History of aortic root aneurysm4.6 cm Multivessel coronary atherosclerosis Evaluated at [facility] Had negative PET stress Did have imaging that showed multivessel CAD Denies any chest pain Will need further evaluation as an outpatient by cardiology COPD As needed nebulizer treatments Hypertension Continue home medications when verified COVID + 03/27 Noted Afebrile at this time VTE: Lovenox Code: Full Dispo: Awaiting placement <Yue Llamas - Last Filed: 04/09/24 17:51> Patient seen and examined. Plan of care discussed with Ms. Llamas. No major changes compared to yesterday. IOANA resolved. Aggressive blood pressure control Cardiology is following. Continue PT Maintain Nunez catheter for urinary retention and hydronephrosis Patient is being evaluated for SNF placement. <frida garcia - Last Filed: 04/09/24 18:10>
[2024-04-10 05:00] LABS: Magnesium 1.5 mg/dL (1.6-2.4); Phosphorus 1.7 mg/dL (2.5-4.9)
[2024-04-10] MEDS: POTASSIUM PHOS IN 0.9 % NACL 15 MMOL/250 ML BAG IV ONE (11:03)
[2024-04-10] MEDS: Magnesium Sulfate 2gm IVPB 2 G/50 ML BAG IV ONE (11:03)
--- NOTE | 2024-04-10 16:29 | P.PN ---
Date of Service: 04/10/24 Subjective: Eating breakfast this moring Working with Physical therapy with moderate assistance Awaiting placement ROS: 10 point ROS as noted above, otherwise negative Physical exam GEN: Alert and oriented x3, NAD, conversing HEENT: Normal conjunctiva, sclera anicteric CV: regular rate and rhythm, S1 S2 present, no edema Pulm: Nonlabored respirations on 2LNC ABD: Soft on palpation, Nondistended/nontender, Nunez catheter in place MSK: left leg tenderness, 2+ peripheral pulses Integumentary: No rashes, dressing to left hip CDI Neuro: Normal speech, normal affect Vitals reviewed Assessment Left intertrochanteric femur fracture S/P RICHAR fixation 04/06 Sepsis secondary to UTI, atypical pneumonia Urinary retention, moderate to marked bilateral hydronephrosis and hydroureter/bladder distention S/P Nunez catheter placement 04/06 a.m. Acute kidney injury-Resolved Hypophosphatemia Hypomagnesemia Constipation History of aortic root aneurysm4.6 cm Multivessel coronary atherosclerosis COPD Hypertension COVID + 03/27 Plan Left intertrochanteric femur fracture S/P RICHAR fixation 04/06 Surgery 04/06 PT eval, touchdown weightbearing as tolerated DVT prophylaxis ordered with Lovenox Will need 3 weeks of DVT prophylaxis followed by 3 weeks of daily aspirin As needed pain medications Gram-negative bacteremia, sepsis secondary to UTI/atypical pneumonia 07/26 preliminary blood cultures positive for gram-negative rods UA concerning for urinary tract infection when Nunez catheter was placed CT chest abdomen pelvis with possible atypical pneumonia-was recently COVID- positive diagnosed on 03/27 Was recently discharged from [facility] on 04/01 white blood cell count was 7 at that time blood and urine cultures Enterobacter Cloacae Blood culture redraw- negative to date Cipro started 04/08, ID consulted White blood cell count continues trending down Acute kidney injury-resolved Urinary retention, moderate to marked bilateral hydronephrosis and hydroureter/bladder distention S/P Nunez catheter placement 04/06 a.m. Bilateral Renal Cysts Improving with IV fluids, creatinine at discharge from [facility] was 0.8, peaked at 1.69 at their facility Improving, likely partially related to urinary retention-likely chronic Flomax continued 04/09 Repeat renal ultrasound reports moderate left and mild right hydronephrosis, incidentally noted bilateral renal cysts, Nunez catheter present within a partially decompressed bladder." Continue IV fluids Consult nephrology for any worsening Follow up outpatient with Dr. Hanson for nunez catheter management Hypophosphatemia Hypomagnesemia Phos 1.7, mag 1.5 Replace monitor and replace PRN Constipation Reports no BM for few days Given dose of MiraLAX 04/07 History of aortic root aneurysm4.6 cm Multivessel coronary atherosclerosis Evaluated at [facility] Had negative PET stress Did have imaging that showed multivessel CAD Denies any chest pain Will need further evaluation as an outpatient by cardiology COPD As needed nebulizer treatments Hypertension Continue home medications when verified COVID + 03/27 Noted Afebrile at this time VTE: Lovenox Code: Full Dispo: Awaiting placement
[2024-04-10] MEDS ORDERED: BENZONATATE 100 MG CAP PO PRN (18:38)
[2024-04-11 06:03] LABS: Anion Gap 6.9 mEq/L (5.0-15.0); Potassium 3.9 mEq/L (3.5-5.1)
[2024-04-11] MEDS: POTASSIUM CL SA 10 MEQ TAB PO ONE (07:58)
[2024-04-11 08:07] LABS: Magnesium 1.6 mg/dL (1.6-2.4); Phosphorus 2.1 mg/dL (2.5-4.9)
[2024-04-11] MEDS: POTASS/SODIUM PHOSPHATE 1 PKT POWD.PACK PO SCH (11:23)
[2024-04-11] MEDS: Magnesium Sulfate 2gm IVPB 2 G/50 ML BAG IV SCH (11:23)
[2024-04-11] MEDS: HYDROCODONE/APAP 7.5/325 MG TAB PO PRN (20:02)
--- NOTE | 2024-04-12 11:44 | P.PN ---
Date of Service: 04/12/24 Subjective: Doing well, no new complaints Awaiting placement ROS: 10 point ROS as noted above, otherwise negative Physical exam GEN: Awake, alert, and oriented x3, NAD, conversing HEENT: Normal conjunctiva, sclera anicteric CV: Normal sinus rhythm, S1 S2 present, no edema Pulm: Nonlabored respirations, symmetric chest wall movement, bilaterally clear breath sounds on 2LNC ABD: Soft on palpation, ND/NT, Nunez catheter in place MSK: left leg tenderness, 2+ peripheral pulses Integumentary: No rashes, dressing to left hip CDI Neuro: Normal speech, normal affect Vitals reviewed Assessment Left intertrochanteric femur fracture S/P RICHAR fixation 04/06 Sepsis secondary to UTI, atypical pneumonia Urinary retention, moderate to marked bilateral hydronephrosis and hydroureter/bladder distention S/P Nunez catheter placement 04/06 a.m. Acute kidney injury-Resolved Hypophosphatemia Hypomagnesemia Constipation History of aortic root aneurysm4.6 cm Multivessel coronary atherosclerosis COPD Hypertension COVID + 03/27 Plan Left intertrochanteric femur fracture S/P RICHAR fixation 04/06 Surgery 04/06 PT eval, touchdown weightbearing as tolerated DVT prophylaxis ordered with Lovenox Will need 3 weeks of DVT prophylaxis followed by 3 weeks of daily aspirin As needed pain medications Gram-negative bacteremia, sepsis secondary to UTI/atypical pneumonia 07/26 preliminary blood cultures positive for gram-negative rods UA concerning for urinary tract infection when Nunez catheter was placed CT chest abdomen pelvis with possible atypical pneumonia-was recently COVID- positive diagnosed on 03/27 Was recently discharged from [facility] on 04/01 white blood cell count was 7 at that time blood and urine cultures Enterobacter Cloacae Blood culture redraw- negative to date Cipro started 04/08, ID consulted White blood cell count continues trending down Acute kidney injury-resolved Urinary retention, moderate to marked bilateral hydronephrosis and hydroureter/bladder distention S/P Nunez catheter placement 04/06 a.m. Bilateral Renal Cysts Improving with IV fluids, creatinine at discharge from [facility] was 0.8, peaked at 1.69 at their facility Improving, likely partially related to urinary retention-likely chronic Flomax continued 04/09 Repeat renal ultrasound reports moderate left and mild right hydronephrosis, incidentally noted bilateral renal cysts, Nunez catheter present within a partially decompressed bladder." Continue IV fluids Consult nephrology for any worsening Follow up outpatient with Dr. Hanson for nunez catheter management UOP 2425 Hypophosphatemia Hypomagnesemia Phos 2.8, mag 1.3 Replace monitor and replace PRN Constipation Reports no BM for few days Given dose of MiraLAX 04/07 History of aortic root aneurysm4.6 cm Multivessel coronary atherosclerosis Evaluated at [facility] Had negative PET stress Did have imaging that showed multivessel CAD Denies any chest pain Will need further evaluation as an outpatient by cardiology COPD As needed nebulizer treatments Hypertension Continue home medications when verified COVID + 03/27 Noted Afebrile at this time VTE: Lovenox Code: Full Dispo: Awaiting placement
--- NOTE | 2024-04-12 11:44 | P.PN ---
Date of Service: 04/11/24 Subjective: Awake and feeling well, in good spirits continues to work with Physical therapy Awaiting placement ROS: 10 point ROS as noted above, otherwise negative Physical exam GEN: AAO x3, NAD, conversing HEENT: Normal conjunctiva, sclera anicteric CV: RRR, S1 S2 present, no edema Pulm: Nonlabored respirations on 2LNC ABD: Soft and benign on palpation, ND/NT, Nunez catheter in place MSK: left leg tenderness, 2+ peripheral pulses Integumentary: No rashes, dressing to left hip CDI Neuro: Normal speech, normal affect Vitals reviewed Assessment Left intertrochanteric femur fracture S/P RICHAR fixation 04/06 Sepsis secondary to UTI, atypical pneumonia Urinary retention, moderate to marked bilateral hydronephrosis and hydroureter/bladder distention S/P Nunez catheter placement 04/06 a.m. Acute kidney injury-Resolved Hypophosphatemia Hypomagnesemia Constipation History of aortic root aneurysm4.6 cm Multivessel coronary atherosclerosis COPD Hypertension COVID + 03/27 Plan Left intertrochanteric femur fracture S/P RICHAR fixation 04/06 Surgery 04/06 PT eval, touchdown weightbearing as tolerated DVT prophylaxis ordered with Lovenox Will need 3 weeks of DVT prophylaxis followed by 3 weeks of daily aspirin As needed pain medications Gram-negative bacteremia, sepsis secondary to UTI/atypical pneumonia 07/26 preliminary blood cultures positive for gram-negative rods UA concerning for urinary tract infection when Nunez catheter was placed CT chest abdomen pelvis with possible atypical pneumonia-was recently COVID- positive diagnosed on 03/27 Was recently discharged from [facility] on 04/01 white blood cell count was 7 at that time blood and urine cultures Enterobacter Cloacae Blood culture redraw- negative to date Cipro started 04/08, ID consulted White blood cell count continues trending down Acute kidney injury-resolved Urinary retention, moderate to marked bilateral hydronephrosis and hydroureter/bladder distention S/P Nunez catheter placement 04/06 a.m. Bilateral Renal Cysts Improving with IV fluids, creatinine at discharge from [facility] was 0.8, peaked at 1.69 at their facility Improving, likely partially related to urinary retention-likely chronic Flomax continued 04/09 Repeat renal ultrasound reports moderate left and mild right hydronephrosis, incidentally noted bilateral renal cysts, Nunez catheter present within a partially decompressed bladder." Continue IV fluids Consult nephrology for any worsening Follow up outpatient with Dr. Hanson for nunez catheter management UOP 2049 Hypophosphatemia Hypomagnesemia Phos 2.1, mag 1.7 Replace monitor and replace PRN Constipation Reports no BM for few days Given dose of MiraLAX 04/07 History of aortic root aneurysm4.6 cm Multivessel coronary atherosclerosis Evaluated at [facility] Had negative PET stress Did have imaging that showed multivessel CAD Denies any chest pain Will need further evaluation as an outpatient by cardiology COPD As needed nebulizer treatments Hypertension Continue home medications when verified COVID + 03/27 Noted Afebrile at this time VTE: Lovenox Code: Full Dispo: Awaiting placement
[2024-04-12 12:47] LABS: Magnesium 1.3 mg/dL (1.6-2.4); Phosphorus 2.8 mg/dL (2.5-4.9)
[2024-04-12] MEDS: Magnesium Sulfate 2gm IVPB 2 G/50 ML BAG IV ONE ×2 (14:45→15:58)
[2024-04-12] MEDS: ACETAMINOPHEN 500 MG TAB PO PRN (19:59)
[2024-04-13] MEDS: ZOLPIDEM TARTRATE 5 MG TABLET PO ONE ×2 (01:15→22:45)
[2024-04-13 06:34] LABS: Anion Gap 5.9 mEq/L (5.0-15.0); Magnesium 1.6 mg/dL (1.6-2.4); Phosphorus 2.5 mg/dL (2.5-4.9); Potassium 3.9 mEq/L (3.5-5.1)
[2024-04-13] MEDS: Magnesium Sulfate 2gm IVPB 2 G/50 ML BAG IV ONE (11:04)
--- NOTE | 2024-04-13 17:15 | P.PN ---
Date of Service: 04/13/24 Subjective: Awake and eating breakfast, questions about placement no new complaints Awaiting placement ROS: 10 point ROS as noted above, otherwise negative Physical exam GEN: AAO x3, NAD, conversing HEENT: Normal conjunctiva, sclera anicteric CV: NSR, S1 S2 present, no edema Pulm: Nonlabored respirations, symmetric chest wall movement, bilaterally clear breath sounds on 2LNC ABD: active bowel sounds, soft and benign on palpation, ND/NT, Nunez catheter in place MSK: left leg tenderness, 2+ peripheral pulses Integumentary: No rashes, dressing to left hip CDI Neuro: Normal speech, normal affect Vitals reviewed Assessment Left intertrochanteric femur fracture S/P RICHAR fixation 04/06 Sepsis secondary to UTI, atypical pneumonia Urinary retention, moderate to marked bilateral hydronephrosis and hydroureter/bladder distention S/P Nunez catheter placement 04/06 a.m. Acute kidney injury-Resolved Hypophosphatemia Hypomagnesemia Constipation History of aortic root aneurysm4.6 cm Multivessel coronary atherosclerosis COPD Hypertension COVID + 03/27 Plan Left intertrochanteric femur fracture S/P RICHAR fixation 04/06 Surgery 04/06 PT eval, touchdown weightbearing as tolerated DVT prophylaxis ordered with Lovenox Will need 3 weeks of DVT prophylaxis followed by 3 weeks of daily aspirin As needed pain medications Gram-negative bacteremia, sepsis secondary to UTI/atypical pneumonia 07/26 preliminary blood cultures positive for gram-negative rods UA concerning for urinary tract infection when Nunez catheter was placed CT chest abdomen pelvis with possible atypical pneumonia-was recently COVID- positive diagnosed on 03/27 Was recently discharged from [facility] on 04/01 white blood cell count was 7 at that time blood and urine cultures Enterobacter Cloacae Blood culture redraw- negative to date Cipro started 04/08, ID consulted White blood cell count continues trending down Acute kidney injury-resolved Urinary retention, moderate to marked bilateral hydronephrosis and hydroureter/bladder distention S/P Nunez catheter placement 04/06 a.m. Bilateral Renal Cysts Improving with IV fluids, creatinine at discharge from [facility] was 0.8, peaked at 1.69 at their facility Improving, likely partially related to urinary retention-likely chronic Flomax continued 04/09 Repeat renal ultrasound reports moderate left and mild right hydronephrosis, incidentally noted bilateral renal cysts, Nunez catheter present within a partially decompressed bladder." Continue IV fluids Consult nephrology for any worsening Follow up outpatient with Dr. Hanson for nunez catheter management UOP 2650 Hypophosphatemia Hypomagnesemia Phos 2.5, mag 1.6 Replace monitor and replace PRN Constipation Reports no BM for few days Given dose of MiraLAX 04/07 History of aortic root aneurysm4.6 cm Multivessel coronary atherosclerosis Evaluated at [facility] Had negative PET stress Did have imaging that showed multivessel CAD Denies any chest pain Will need further evaluation as an outpatient by cardiology COPD As needed nebulizer treatments Hypertension Continue home medications when verified COVID + 03/27 Noted Afebrile at this time VTE: Lovenox Code: Full Dispo: Awaiting placement <Yue Llamas - Last Filed: 04/13/24 17:12> Patient seen and examined. Plan of care discussed with Ms. Llamas. He currently has no complete. Patient to complete 2 weeks of antibiotics for Enterobacter bacteremia. He is currently on IV ciprofloxacin. Patient with a history of aortic aneurysm. Aggressive blood pressure control needed. His blood pressure is well-controlled with the current antihypertensive regimen. Cardiology input appreciated. <frida garcia - Last Filed: 04/13/24 18:50>
[2024-04-14] MEDS: PANTOPRAZOLE 40MG TABLET PO SCH (04:15)
[2024-04-14 05:08] LABS: Anion Gap 6.9 mEq/L (5.0-15.0); Magnesium 1.6 mg/dL (1.6-2.4); Phosphorus 2.6 mg/dL (2.5-4.9); Potassium 3.9 mEq/L (3.5-5.1)
[2024-04-14] MEDS ORDERED: PANTOPRAZOLE 40MG TABLET PO SCH (07:30)
--- NOTE | 2024-04-14 11:07 | P.PN ---
Date of Service: 04/14/24 Subjective: Doing well, questioning the placement process. no new complaints Awaiting placement ROS: 10 point ROS as noted above, otherwise negative Physical exam GEN: Alert and oriented x3, NAD, conversing HEENT: Normal conjunctiva, sclera anicteric CV: Normal sinus rhythm, S1 S2 present, no edema Pulm: Nonlabored respirations, bilaterally clear breath sounds on 2LNC ABD: active bowel sounds, soft on palpation, ND/NT, Nunez catheter in place MSK: left leg tenderness, 2+ peripheral pulses Integumentary: No rashes, dressing to left hip CDI, stage one to buttock Neuro: Normal speech, normal affect Vitals reviewed Assessment Left intertrochanteric femur fracture S/P RICHAR fixation 04/06 Sepsis secondary to UTI, atypical pneumonia Urinary retention, moderate to marked bilateral hydronephrosis and hydroureter/bladder distention S/P Nunez catheter placement 04/06 a.m. Acute kidney injury-Resolved Hypophosphatemia Hypomagnesemia Constipation History of aortic root aneurysm4.6 cm Multivessel coronary atherosclerosis COPD Hypertension COVID + 03/27 Stage one pressure wound to buttocks Plan Left intertrochanteric femur fracture S/P RICHAR fixation 04/06 Surgery 04/06 PT eval, touchdown weightbearing as tolerated DVT prophylaxis ordered with Lovenox Will need 3 weeks of DVT prophylaxis followed by 3 weeks of daily aspirin As needed pain medications Gram-negative bacteremia, sepsis secondary to UTI/atypical pneumonia 07/26 preliminary blood cultures positive for gram-negative rods UA concerning for urinary tract infection when Nunez catheter was placed CT chest abdomen pelvis with possible atypical pneumonia-was recently COVID- positive diagnosed on 03/27 Was recently discharged from [facility] on 04/01 white blood cell count was 7 at that time blood and urine cultures Enterobacter Cloacae Blood culture redraw- negative to date Cipro started 04/08, ID consulted White blood cell count continues trending down Acute kidney injury-resolved Urinary retention, moderate to marked bilateral hydronephrosis and hydroureter/bladder distention S/P Nunez catheter placement 04/06 a.m. Bilateral Renal Cysts Improving with IV fluids, creatinine at discharge from [facility] was 0.8, peaked at 1.69 at their facility Improving, likely partially related to urinary retention-likely chronic Flomax continued 04/09 Repeat renal ultrasound reports moderate left and mild right hydronephrosis, incidentally noted bilateral renal cysts, Nunez catheter present within a partially decompressed bladder." Continue IV fluids Consult nephrology for any worsening Follow up outpatient with Dr. Hanson for nunez catheter management UOP 2650 Hypophosphatemia Hypomagnesemia Phos 2.6, mag 1.6 Replace monitor and replace PRN Constipation Reports no BM for few days Given dose of MiraLAX 04/07 History of aortic root aneurysm4.6 cm Multivessel coronary atherosclerosis Evaluated at [facility] Had negative PET stress Did have imaging that showed multivessel CAD Denies any chest pain Will need further evaluation as an outpatient by cardiology COPD As needed nebulizer treatments Hypertension Continue home medications when verified COVID + 03/27 Noted Afebrile at this time Stage one pressure wound to buttocks -Zinc oxide VTE: Lovenox/SCD Code: Full Dispo: Awaiting placement
[2024-04-14] MEDS: POTASSIUM CL SA 10 MEQ TAB PO ONE (11:53)
[2024-04-15 04:53] LABS: Magnesium 1.4 mg/dL (1.6-2.4); Phosphorus 2.6 mg/dL (2.5-4.9)
[2024-04-15] MEDS: MAGNES/ALUMIN/SIMET 30ML UCUP PO PRN (08:50)
--- NOTE | 2024-04-15 11:57 | PN ---
Subjective: Patient sitting in wheelchair. Denies any headache, nausea, vomiting, chest pain, abdom inal pain, constipation, or diarrhea. Objective: Vital Signs: Reviewed. Lungs: Basal crackles. Heart: S1, S2. Regular. Abdomen: Soft, nontender. Bowel sounds present. Extremity: No edema. Laboratory Data: WBC 14.3, hemoglobin 9.8, platelets are 170. Chemistry shows BUN of 11, creatinine 0.6. Blood culture, Enterobacter cloacae; and urine culture, Enterobacter cloacae. Blood cultures on 04/08 negative. Patient currently being treated with Cipro and ciprofloxacin, total course of 2 weeks. We will follo w the patient as needed. NF/MODL Voice ID: [id number] Report ID: [id number]
--- NOTE | 2024-04-15 12:50 | P.PN ---
Date of Service: 04/15/24 Subjective: No acute events overnight Still with complaints of left hip pain especially with ambulation which is limiting his movement ROS: 10 point ROS as noted above, otherwise negative Physical exam GEN: Alert and oriented x3, NAD, conversing HEENT: Normal conjunctiva, sclera anicteric CV: Normal sinus rhythm, S1 S2 present, no edema Pulm: Nonlabored respirations, bilaterally clear breath sounds on 2LNC ABD: active bowel sounds, soft on palpation, ND/NT, Nunez catheter in place MSK: left leg tenderness, 2+ peripheral pulses Integumentary: No rashes, dressing to left hip CDI, stage one to buttock Neuro: Normal speech, normal affect Vitals reviewed Assessment Left intertrochanteric femur fracture S/P RICHAR fixation 04/06 Sepsis secondary to UTI, atypical pneumonia Urinary retention, moderate to marked bilateral hydronephrosis and hydroureter/bladder distention S/P Nunez catheter placement 04/06 a.m. Acute kidney injury-Resolved Hypophosphatemia Hypomagnesemia Constipation History of aortic root aneurysm4.6 cm Multivessel coronary atherosclerosis COPD Hypertension COVID + 03/27 Stage one pressure wound to buttocks Plan Left intertrochanteric femur fracture S/P RICHAR fixation 04/06 Surgery 04/06 PT eval, touchdown weightbearing as tolerated DVT prophylaxis ordered with Lovenox Will need 3 weeks of DVT prophylaxis followed by 3 weeks of daily aspirin As needed pain medications Gram-negative bacteremia, sepsis secondary to UTI/atypical pneumonia CT chest abdomen pelvis with possible atypical pneumonia-was recently COVID- positive diagnosed on 03/27 [address] discharged from [facility] on 04/01 white blood cell count was 7 at that time blood and urine cultures Enterobacter Cloacae Blood culture redraw- negative to date Cipro started 04/08, ID consulted White blood cell count continues trending down Acute kidney injury-resolved Urinary retention, moderate to marked bilateral hydronephrosis and hydroureter/bladder distention S/P Nunez catheter placement 04/06 a.m. Bilateral Renal Cysts Improved with IV fluids, creatinine at discharge from [facility] was 0.8, peaked at 1.69 at their facility Improving, likely partially related to urinary retention-likely chronic Flomax continued 04/09 Repeat renal ultrasound reports moderate left and mild right hydronephrosis, incidentally noted bilateral renal cysts, Nunez catheter present within a partially decompressed bladder." Continue IV fluids Consult nephrology for any worsening Follow up outpatient with Dr. Hanson for nunez catheter management Hypophosphatemia Hypomagnesemia Phos 2.6, mag 1.6 Replace monitor and replace PRN Constipation Reports no BM for few days Given dose of MiraLAX 04/07 History of aortic root aneurysm4.6 cm Multivessel coronary atherosclerosis Evaluated at [facility] Had negative PET stress Did have imaging that showed multivessel CAD Denies any chest pain Will need further evaluation as an outpatient by cardiology COPD As needed nebulizer treatments Hypertension Continue home medications when verified COVID + 03/27 Noted Afebrile at this time Stage one pressure wound to buttocks -Zinc oxide VTE: Lovenox/SCD Code: Full Dispo: Awaiting placement
[2024-04-15] MEDS: Magnesium Sulfate 2gm IVPB 2 G/50 ML BAG IV ONE (13:38)
[2024-04-16 09:52] VITALS: O2SAT 98
[2024-04-16 13:57] VITALS: BP 113/65; TEMP 98
--- NOTE | 2024-04-16 15:57 | P.DS ---
Admission Date: 04/06/24 Discharge Date: 04/16/24 Disposition: TRANSFER TO SNF - REHAB Discharge Condition: GOOD Reason for Admission: Hip fx Brief History of Present Illness: Patient is a 68-year-old male with a past medical history of hypertension, 5.2 cm aortic root dilatation/aneurysm and COPD. He presented to the ER complaining of left hip pain after fall that occurred 2 weeks ago. He has been found to have a left hip fracture. Patient is hemodynamically stable. ER contacted orthopedic surgery and cardiology. He has been cleared for surgery. Patient was seen for his 5.3 aortic root aneurysm at [facility]. He told me that CT surgery recommended to treat this medically first. Hospital Course: Assessment Left intertrochanteric femur fracture S/P RICHAR fixation 04/06 Sepsis secondary to UTI, atypical pneumonia Urinary retention, moderate to marked bilateral hydronephrosis and hydroureter/bladder distention S/P Gallo catheter placement 04/06 a.m. Acute kidney injury-Resolved Hypophosphatemia Hypomagnesemia Constipation History of aortic root aneurysm4.6 cm Multivessel coronary atherosclerosis COPD Hypertension COVID + 03/27 Stage one pressure wound to buttocks Patient was admitted to the hospital on 04/05 for a left hip fracture. He had recently been evaluated at [facility] for a 4.6 cm aortic root aneurysm, medical management was recommended at this time. He had a negative stress test while he was there but he did have imaging performed which showed multivessel CAD. He was seen by cardiology prior to surgery and deemed moderate to high risk, he underwent left hip RICHAR fixation on 04/06. Patient was also noted to have urinary retention during his hospitalization leading to acute kidney injury, Gallo catheter was placed and has been draining freely, he will need to follow-up with urology for voiding trial/catheter evaluation. Patient was also bacteremic with UTI on admission both urine and blood cultures show Enterobacter Cloace sensitive to ciprofloxacin. He was started on Cipro on 04/08, repeat blood cultures were also obtained on 04/08 which showed no growth in 5 days. Patient will be transition to oral Cipro 500 mg by mouth twice daily with end date of April 22 for total of 2 weeks of therapy. Patient was approved for SNF rehab for further PT He will need to follow-up with orthopedics, cardiology, urologyDr. Valentin Per Ortho patient should have DVT prophylaxis through April 27, after this he should take daily aspirin for an additional 3 weeks. Touchdown weightbearing x 4 to 6 weeks Vital Signs/Physical Exam: Temp Pulse Resp BP Pulse Ox 98.0 F 75 16 113/65 99 04/16/24 12:00 04/16/24 12:00 04/16/24 12:00 04/16/24 12:00 04/16/24 12:00 General: Alert, In no apparent distress, Oriented x3 HEENT: Atraumatic, PERRLA Neck: Supple, JVD not distended Respiratory: Clear to auscultation bilaterally, Normal air movement Cardiovascular: Regular rate/rhythm, Normal S1 S2 Gastrointestinal: Normal bowel sounds, No tenderness Musculoskeletal: No tenderness Integumentary: No rashes Neurological: Normal speech, Normal tone, Normal affect Urinary: Gallo catheter Laboratory Data at Discharge: WBC 14.30 thou/uL (4.3-10.9) H 04/09/24 07:37 Hgb 9.8 g/dL (13.6-17.9) L 04/09/24 07:37 Hct 30.2 % (39.6-49.0) L 04/09/24 07:37 Plt Count 170 thou/uL (152-406) 04/09/24 07:37 PT 12.5 SECONDS (9.4-12.5) 04/06/24 05:41 INR 1.12 04/06/24 05:41 APTT 26.2 SECONDS (24.3-36.9) 04/06/24 05:41 Sodium 136 mEq/L (136-145) 04/15/24 03:56 Potassium 4.0 mEq/L (3.5-5.1) 04/15/24 03:56 BUN 11 mg/dL (7-18) 04/15/24 03:56 Creatinine 0.64 mg/dL (0.70-1.30) L 04/15/24 03:56 Glucose 67 mg/dL (74-106) L 04/15/24 03:56 Phosphorus 2.6 mg/dL (2.5-4.9) 04/15/24 03:56 Magnesium 1.9 mg/dL (1.6-2.4) 04/15/24 22:00 Total Bilirubin 0.9 mg/dL (0.2-1.0) 04/05/24 13:19 AST 24 U/L (15-37) 04/05/24 13:19 ALT 40 U/L (16-61) 04/05/24 13:19 Alkaline Phosphatase 90 U/L (45-117) 04/05/24 13:19 Triglycerides 110 mg/dL (<150) 04/06/24 05:41 Cholesterol 106 mg/dL (<200) 04/06/24 05:41 HDL Cholesterol 47 mg/dL (40-60) 04/06/24 05:41 Cholesterol/HDL Ratio 2.26 04/06/24 05:41 Home Medications: Amlodipine [Norvasc*] 2.5 mg PO BID 04/06/24 Atorvastatin Calcium [Lipitor] 40 mg PO BEDTIME 04/06/24 Bupropion *Xl* [Wellbutrin XL*] 150 mg PO BID 04/06/24 Folic Acid 1 mg PO DAILY 04/06/24 Spironolactone [Aldactone*] 25 mg PO DAILY 04/06/24 Tamsulosin [Flomax*] 1 cap PO DAILY 04/06/24 Umeclidinium Brm/Vilanterol Tr [Anoro Ellipta 62.5-25 Mcg INH] 1 each IH DAILY 04/06/24 Ciprofloxacin HCl [Cipro 500 MG Tablet] 500 mg PO BID 7 Days #14 tab 04/16/24 Enoxaparin Sodium [Lovenox 40 MG INJ*] 40 mg SQ DAILY syr 04/16/24 Ensure Enlive 237 ml PO BID can 04/16/24 Hydrocodone 7.5/APAP 325 [[place] 7.5/325 mg*] 1 tab PO Q4H PRN tab 04/16/24 Metoprolol Tartrate [Lopressor*] 25 mg PO BID 6AM 6PM tab 04/16/24 New Medications: Ciprofloxacin HCl [Cipro 500 MG Tablet] 500 mg PO BID 7 Days #14 tab Physician Discharge Instructions: Patient was admitted to the hospital on 04/05 for a left hip fracture. He had recently been evaluated at [facility] for a 4.6 cm aortic root aneurysm, medical management was recommended at this time. He had a negative stress test while he was there but he did have imaging performed which showed multivessel CAD. He was seen by cardiology prior to surgery and deemed moderate to high risk, he underwent left hip RICHAR fixation on 04/06. Patient was also noted to have urinary retention during his hospitalization leading to acute kidney injury, Gallo catheter was placed and has been draining freely, he will need to follow-up with urology for voiding trial/catheter evaluation. Patient was also bacteremic with UTI on admission both urine and blood cultures show Enterobacter Cloace sensitive to ciprofloxacin. He was started on Cipro on 04/08, repeat blood cultures were also obtained on 04/08 which showed no growth in 5 days. Patient will be transition to oral Cipro 500 mg by mouth twice daily with end date of April 22 for total of 2 weeks of therapy. Patient was approved for SNF rehab for further PT He will need to follow-up with orthopedics, cardiology, urologyDr. Valentin Per Ortho patient should have DVT prophylaxis through April 27, after this he should take daily aspirin for an additional 3 weeks. Touchdown weightbearing x 4 to 6 weeks Diet: Regular Activity: Touch-down Followup: Parviz Patel MD [ACTIVE - CAN ADMIT] - 1-2 Weeks Louis Waddell MD [Primary Care Provider] - 1-2 Weeks Sonu Hanson [ACTIVE - CAN ADMIT] - 1-2 Weeks Time spent managing pt's care (in minutes): 45
--- NOTE | 2024-04-16 17:45 | PN ---
Subjective: Patient in sitting in bed, not in any acute distress. Denies any headache, nausea, vomi ting, chest pain, abdominal pain, constipation, or diarrhea. Objective: Vital signs: Reviewed. Lungs: Basal crackles. Heart: S1, S2. Regular. Abdomen: Soft, nontender. Bowel sounds present. Extremities: No edema. Laboratory Data: Reviewed. Assessment And Plan: Status post left hip fracture and repair, bacteremia, improving. Patient to milagro his antibiotic treatment. Continue supportive care and Wound Care will follow the patient as ne eded. NF/MODL Voice ID: [id number] Report ID: [id number]
== END 2024-04-16 13:37 | DRG 853 ==
LOC: ER 12:59 → 3RD-ICU 04-06 01:53 → 2ND 04-10 17:16
PROVIDERS: ADMIT Internal Medicine; ATTEND Hospitalist
PROC: 0T9B70Z Drainage of Bladder with Drainage Device, Via Natural or Artificial Opening (ICD-10-PCS; 2024-04-06)
PROC: 0QS736Z Reposition Left Upper Femur with Intramedullary Internal Fixation Device, Percutaneous Approach (ICD-10-PCS; principal; 2024-04-06 11:00)
DX: A41.89 Other specified sepsis (principal); E43 Unspecified severe protein-calorie malnutrition; S72.142A Displaced intertrochanteric fracture of left femur, initial encounter for closed fracture; U07.1 COVID-19; J18.9 Pneumonia, unspecified organism; Z68.1 Body mass index [BMI] 19.9 or less, adult; R64 Cachexia; Q25.43 Congenital aneurysm of aorta; N17.9 Acute kidney failure, unspecified; N13.6 Pyonephrosis; J44.0 Chronic obstructive pulmonary disease with (acute) lower respiratory infection; R65.20 Severe sepsis without septic shock; K59.00 Constipation, unspecified; I10 Essential (primary) hypertension; I25.10 Atherosclerotic heart disease of native coronary artery without angina pectoris; K40.90 Unilateral inguinal hernia, without obstruction or gangrene, not specified as recurrent; E83.39 Other disorders of phosphorus metabolism; E83.42 Hypomagnesemia; N28.1 Cyst of kidney, acquired; L89.321 Pressure ulcer of left buttock, stage 1; F17.200 Nicotine dependence, unspecified, uncomplicated; Z88.8 Allergy status to other drugs, medicaments and biological substances; Z79.82 Long term (current) use of aspirin
CPT/HCPCS: 36415; 71045; 71250; 72170; 74176; 76770; 80048; 80053; 80061; 81001; 82947; 83605; 83735; 84100; 84132; 84484; 85025; 85027; 85610; 85730; 87040; 87077; 87086; 87088; 87186; 87205; 93005; 93306; 93970; 94640; 94760; 96361; 96374; 96375; 97110; 97116; 97161; 97530; 99285; J0690; J0744; J1100; J1170; J1644; J1650; J2001; J2250; J2405; J3010; J3475; J3480; J7040; J7120; J7613; J7644; J7799